=== PATIENT | male | born 1955 | race Caucasian/White ===

== ENCOUNTER → 2017-06-30 | Outpatient (CLI) | payer BC ==
[2017-06-30 11:49] LABS: Blood Urea Nitrogen 11 mg/dL (9-20)
--- NOTE | 2017-06-30 13:24 | CT ---
EXAMINATION TYPE: CT soft tissue neck w con DATE OF EXAM: 06/30/2017 HISTORY: Patient complains of left side sore throat. COMPARISON: 04/30/2015 CT DLP: 747.6 mGycm. Automated Exposure Control for Dose Reduction was Utilized. TECHNIQUE: CT scan of the neck is performed with IV Contrast, patient injected with 100 mL of Isovue 300, axial images are obtained, coronal and sagittal reformatted images are reviewed. FINDINGS: Airway: There is slight asymmetric enlargement of the inferior aspect of the left parapharyngeal tons il comparison to the right although this appears similar to the exam of 04/30/2015 such as on series 3 image 63 measuring 1.2 cm in transverse dimension and on the prior examination on series 3 image 25 measuring 1.5 cm in transverse dimension. There is minimal resultant posterior oropharyngeal airway n arrowing without obstruction. Parotid/submandibular glands: Parotid and submandibular glands are symmetric without calculus or infl ammatory change. Carotid/Vascular Structures: No hemodynamically significant stenosis is present. Vertebral arteries a re diminutive in their intracranial portion but codominant. Osseous Structures: The paranasal sinuses are clear other than scant mucosal thickening within the an terior right lateral sphenoid sinus. Antrostomy defects are incidentally noted. The mastoid air cells are also well aerated. Osseous structures are intact. Frontal sinuses are noted to be hypoplastic. M ild multilevel degenerative changes of the cervical spine are seen. Other: Again there is incidental note of copious mediastinal fat deposition (mediastinal lipomatosis) , a benign process. IMPRESSION: There is asymmetric fullness of the inferior margin of the left parapharyngeal tonsil alt dianna this appears similar to the exam of 2016 and may simply represent hypertrophy. Direct visualiza tion is recommended. No adenopathy within the neck.
== END | disposition home or self-care (01) ==
LOC: RADCTMAIN 11:22
PROVIDERS: ATTEND Otolaryngology
DX: J02.9 Acute pharyngitis, unspecified (principal)
CPT/HCPCS: 82565; 84520; 70491; 36415; Q9967

== ENCOUNTER → 2017-08-31 | Outpatient (CLI) | payer BC ==
[~2017-08-31] MED LIST: REGADENOSON 0.4 MG/5 ML SYRINGE IV ONE
--- NOTE | 2017-08-31 10:31 | P.STRESS ---
- Stress Test Note Stress Test Results/Findings: Exam Performed: NM stress lexiscan cardiolite Exam Date: 08/31/17 Reason for Exam: Physical Height: 5 ft 9 in Weight: 167.829 kg Protocol: Bernice Scan Stage: na Duration of Exercise: na Resting Heart Rate: 74 Resting Blood Pressure: 128/78 Maximum Achieved Heart Rate: 97 Maximum Achieved Blood Pressure: 152/51 85% PMHR: na 100% PMHR: na METS: na Technologist Comment: Stress Test Results/Findings: This is a 61-year-old male with history of hypertension, diabetes, hypercholesterolemia and family history being evaluated for cardiac status. Patient is also a smoker.. Stress data: Baseline EKG showed sinus rhythm with evidence of right bundle- branch block pattern. A standard dose of Lexiscan was infused. EKGs taken during and after infusion did not reveal any significant changes from baseline. Patient did not experience any chest pain. Final impression: #1. Negative Lexiscan stress test .#2. Report on the nuclear images to be given by the radiologist.
--- NOTE | 2017-08-31 13:08 | NM ---
EXAMINATION TYPE: NM stress lexiscan cardiolite DATE OF EXAM: 08/31/2017 COMPARISON: 08/18/2013 HISTORY: Chest pain TECHNIQUE: After the intravenous administration of 10.95 mCi Tc 99m Sestamibi - Cardiolite resting S PECT images acquired 50 minutes post injection. The patient received 0.4mg Lexiscan, 26.6 mCi Tc 99m Sestamibi - Stress images obtained [address] injection FINDINGS: Review of stress and rest SPECT images demonstrates no distinct perfusion abnormality. Gated analysi s shows normal wall motion with an estimated left ventricular ejection fraction of 65 %. IMPRESSION: No scintigraphic evidence for reversible ischemia.
== END ==
LOC: RADNMMAIN 07:42
PROVIDERS: ATTEND Internal Medicine
DX: R94.31 Abnormal electrocardiogram [ECG] [EKG] (principal)
CPT/HCPCS: 93017; 78452; A9500; J2785

== ENCOUNTER → 2017-09-05 | Outpatient (CLI) | payer BC | END | disposition home or self-care (01) | LOC: RADPETMAIN 07:20 | PROVIDERS: ATTEND Otolaryngology | DX: D37.05 Neoplasm of uncertain behavior of pharynx (principal); Z53.9 Procedure and treatment not carried out, unspecified reason ==

== ENCOUNTER → 2017-09-12 | Outpatient (CLI) | payer BC ==
--- NOTE | 2017-09-13 13:23 | PE ---
Nuclear medicine PET/CT history: Pharyngeal neoplasm, initial Correlation CT neck 06/30/2017 Patient received 12.6 mCi F-18 FDG intravenously in delayed scanning was performed from the skull bas e to the mid thighs. An attenuation correction CT scan was performed. Small [id number] images obta ined through the neck. Head and neck: There is no evident adenopathy. Uptake present within the palatine tonsils is mild, so me mild asymmetry of uptake at the ankle joint, palatine tonsil somewhat greater on the right as comp ared to left at the mucosal surface and may be related to salivary secretion. Tonsillar uptake is rel atively symmetric, uptake at the base of the tongue is indeterminate and mild. CHEST: There is no suspicious hypermetabolic uptake. Enlarged lymph nodes present in the retrocaval p retracheal mediastinum is present. Heart is enlarged. There is coronary artery calcification. No evid ent lung nodule. No suspicious hypermetabolic uptake. Abdomen pelvis: No evident retroperitoneal adenopathy. Liver shows low attenuation likely due to hepa tic steatosis, liver is enlarged. Patient is post cholecystectomy. There is a duodenal diverticulum. No suspicious hypermetabolic uptake. Osseous structures are unremarkable. IMPRESSION: Nonspecific pharyngeal uptake questionable clinical significance, no suspicious adenopath y.
== END | disposition home or self-care (01) ==
LOC: RADPETMAIN 11:49
PROVIDERS: ATTEND Otolaryngology
DX: D37.05 Neoplasm of uncertain behavior of pharynx (principal); R07.0 Pain in throat
CPT/HCPCS: 78815; A9552

== ENCOUNTER → 2020-03-26 | Outpatient (CLI) | payer BC | END | disposition home or self-care (01) | LOC: RADMRIMAIN 12:54 | PROVIDERS: ATTEND Orthopaedic Surgery Sports Medicine | DX: Z53.9 Procedure and treatment not carried out, unspecified reason (principal) ==

== ENCOUNTER 2021-02-11 10:13 | Inpatient (IN) | payer BC ==
--- NOTE | 2021-02-11 11:07 | ED ---
General Adult HPI - General Chief complaint: Shortness of Breath Stated complaint: BASIM Time Seen by Provider: 02/11/21 10:41 Source: patient, RN notes reviewed Mode of arrival: ambulatory Limitations: no limitations - History of Present Illness Initial comments: Patient is a pleasant 65-year-old male presenting to the emergency department with difficulty in breathing. Onset of symptoms was 1 week ago. Symptoms have worsened the past couple of days. Symptoms do worsen with exertion. Patient has not noticed orthopnea however does use a CPAP. Patient denies any cough however did cough during exam. No chest pain. No fevers. No leg pain or leg swelling. No history of similar symptoms previously. - Related Data Home Medications Medication Instructions Recorded Confirmed Aspirin EC [Ecotrin Low Dose] 81 mg PO DAILY 06/06/19 02/11/21 Atorvastatin [Lipitor] 40 mg PO DAILY 06/06/19 02/11/21 Bisoprolol-Hctz 2.5-6.25 mg [Ziac 1 tab PO DAILY 06/06/19 02/11/21 2.5-6.25 MG] Canagliflozin [Invokana] 100 mg PO DAILY 06/06/19 02/11/21 Cholecalciferol [Vitamin D3 (25 2,000 unit PO DAILY 06/06/19 02/11/21 Mcg = 1000 Iu)] Fenofibrate [Lofibra] 160 mg PO DAILY 06/06/19 02/11/21 Furosemide [Lasix] 40 mg PO DAILY 06/06/19 02/11/21 Insulin Degludec [Tresiba 54 units SQ DAILY 06/06/19 02/11/21 Flextouch U-200 Pen] Lansoprazole 30 mg PO DAILY 06/06/19 02/11/21 Levothyroxine Sodium [Synthroid] 50 mcg PO DAILY 06/06/19 02/11/21 Ramipril 10 mg PO DAILY 06/06/19 02/11/21 amLODIPine [Norvasc] 10 mg PO DAILY 06/06/19 02/11/21 sitaGLIPtin PHOS/metFORMIN HCL 1 tab PO DAILY 06/06/19 02/11/21 [Janumet 50-1,000 mg Tablet] Insulin Aspart [NovoLOG Flexpen] 15 units SQ AC-TID 02/11/21 02/11/21 Potassium Chloride ER [K-Dur 20] 20 meq PO DAILY 02/11/21 02/11/21 Semaglutide [Rybelsus] 3 mg PO DAILY 02/11/21 02/11/21 icosapent ethyL [Icosapent Ethyl] 2 gm PO BID 02/11/21 02/11/21 Allergies Allergy/AdvReac Type Severity Reaction Status Date / Time No Known Allergies Allergy Verified 02/11/21 12:15 Review of Systems ROS Statement: Those systems with pertinent positive or pertinent negative responses have been documented in the HPI. ROS Other: All systems not noted in ROS Statement are negative. Constitutional: Denies: fever Eyes: Denies: eye pain ENT: Denies: ear pain Respiratory: Reports: as per HPI, dyspnea Cardiovascular: Denies: chest pain Endocrine: Denies: fatigue Gastrointestinal: Denies: abdominal pain Genitourinary: Denies: dysuria Musculoskeletal: Denies: back pain Skin: Denies: rash Neurological: Denies: weakness Past Medical History Past Medical History: Diabetes Mellitus, GERD/Reflux, Hearing Disorder / Deafness, Hyperlipidemia, Hypertension, Sleep Apnea/CPAP/BIPAP, Thyroid Disorder Additional Past Medical History / Comment(s): IDDM type II, [place] with Cpap use, hypothyroid, bilateral tinnitis, [place] bilaterally with L ear worse, low back pain. History of Any Multi-Drug Resistant Organisms: MRSA Date of last positivie culture/infection: back MDRO Source:: 2014 Past Surgical History: Cholecystectomy, Tonsillectomy Additional Past Surgical History / Comment(s): Sinus surgery/benign polypectomy, colonoscopy/benign polypectomy Past Anesthesia/Blood Transfusion Reactions: No Reported Reaction Past Psychological History: No Psychological Hx Reported Smoking Status: Former smoker Past Alcohol Use History: None Reported, Occasional Past Drug Use History: None Reported - Past Family History Father History Unknown: Yes Additional Family Medical History / Comment(s): Pt never met his father. Mother Family Medical History: CVA/TIA General Exam Limitations: no limitations General appearance: alert Head exam: Present: normocephalic Eye exam: Present: normal appearance Neck exam: Present: normal inspection Respiratory exam: Present: normal lung sounds bilaterally, other (Patient did cough with some mild rales with cough only. Patient does have some tachypnea). Absent: decreased breath sounds Cardiovascular Exam: Present: regular rate, normal rhythm GI/Abdominal exam: Present: soft. Absent: tenderness Extremities exam: Present: normal inspection. Absent: pedal edema, calf tenderness Neurological exam: Present: alert Psychiatric exam: Present: normal affect, normal mood Skin exam: Present: normal color Course Vital Signs 02/11/21 02/11/21 10:19 10:57 Temperature 98.5 F Pulse Rate 97 Respiratory 18 28 H Rate Blood Pressure 183/102 O2 Sat by Pulse 92 L Oximetry EKG Findings - EKG Comments: EKG Findings:: Normal sinus rhythm rate 96. AK 174. QRS 144. QT 410. QTc 5 and 7. Left axis. Right bundle branch block. Inferior Q waves. No acute ST change. Medical Decision Making - Medical Decision Making Patient reevaluated and resting sitting up in bed. Patient symptoms somewhat improved with oxygen. Secondary to hypoxia and tachypnea patient will be admitted. Case discussed with Dr. Gary who is in agreement and does request pulmonary consult. - Lab Data Result diagrams: 02/11/21 11:05 02/11/21 11:05 Lab Results 02/11/21 02/11/21 02/11/21 Range/Units 11:05 11:05 11:05 WBC 7.7 (3.8-10.6) k/uL RBC 4.82 (4.30-5.90) m/uL Hgb 15.6 (13.0-17.5) gm/dL Hct 44.4 (39.0-53.0) % MCV 92.2 (80.0-100.0) fL MCH 32.4 (25.0-35.0) pg MCHC 35.2 (31.0-37.0) g/dL RDW 12.9 (11.5-15.5) % Plt Count 172 (150-450) k/uL MPV 8.4 Neutrophils % 85 % Lymphocytes % 9 % Monocytes % 4 % Eosinophils % 0 % Basophils % 0 % Neutrophils # 6.6 (1.3-7.7) k/uL Lymphocytes # 0.7 L (1.0-4.8) k/uL Monocytes # 0.3 (0-1.0) k/uL Eosinophils # 0.0 (0-0.7) k/uL Basophils # 0.0 (0-0.2) k/uL PT 10.1 (9.0-12.0) sec INR 0.9 (<1.2) APTT 23.6 (22.0-30.0) sec D-Dimer 0.44 (<0.60) mg/L FEU Sodium 130 L (137-145) mmol/L Potassium 4.5 (3.5-5.1) mmol/L Chloride 94 L (98-107) mmol/L Carbon Dioxide 18 L (22-30) mmol/L Anion Gap 18 mmol/L BUN 13 (9-20) mg/dL Creatinine 0.72 (0.66-1.25) mg/dL Est GFR (CKD-EPI)AfAm >90 (>60 ml/min/1.73 sqM) Est GFR (CKD-EPI)NonAf >90 (>60 ml/min/1.73 sqM) Glucose 276 H (74-99) mg/dL Plasma Lactic Acid Ned (0.7-2.0) mmol/L Calcium 9.0 (8.4-10.2) mg/dL Total Bilirubin 0.6 (0.2-1.3) mg/dL AST 26 (17-59) U/L ALT 25 (4-49) U/L Alkaline Phosphatase 58 (38-126) U/L Troponin I (0.000-0.034) ng/mL NT-Pro-B Natriuret Pep pg/mL Total Protein 7.0 (6.3-8.2) g/dL Albumin 3.9 (3.5-5.0) g/dL Coronavirus (PCR) (Not Detectd) 02/11/21 02/11/21 02/11/21 Range/Units 11:05 11:05 11:05 WBC (3.8-10.6) k/uL RBC (4.30-5.90) m/uL Hgb (13.0-17.5) gm/dL Hct (39.0-53.0) % MCV (80.0-100.0) fL MCH (25.0-35.0) pg MCHC (31.0-37.0) g/dL RDW (11.5-15.5) % Plt Count (150-450) k/uL MPV Neutrophils % % Lymphocytes % % Monocytes % % Eosinophils % % Basophils % % Neutrophils # (1.3-7.7) k/uL Lymphocytes # (1.0-4.8) k/uL Monocytes # (0-1.0) k/uL Eosinophils # (0-0.7) k/uL Basophils # (0-0.2) k/uL PT (9.0-12.0) sec INR (<1.2) APTT (22.0-30.0) sec D-Dimer (<0.60) mg/L FEU Sodium (137-145) mmol/L Potassium (3.5-5.1) mmol/L Chloride (98-107) mmol/L Carbon Dioxide (22-30) mmol/L Anion Gap mmol/L BUN (9-20) mg/dL Creatinine (0.66-1.25) mg/dL Est GFR (CKD-EPI)AfAm (>60 ml/min/1.73 sqM) Est GFR (CKD-EPI)NonAf (>60 ml/min/1.73 sqM) Glucose (74-99) mg/dL Plasma Lactic Acid Ned 1.1 (0.7-2.0) mmol/L Calcium (8.4-10.2) mg/dL Total Bilirubin (0.2-1.3) mg/dL AST (17-59) U/L ALT (4-49) U/L Alkaline Phosphatase (38-126) U/L Troponin I <0.012 (0.000-0.034) ng/mL NT-Pro-B Natriuret Pep 112 pg/mL Total Protein (6.3-8.2) g/dL Albumin (3.5-5.0) g/dL Coronavirus (PCR) (Not Detectd) 02/11/21 Range/Units 11:05 WBC (3.8-10.6) k/uL RBC (4.30-5.90) m/uL Hgb (13.0-17.5) gm/dL Hct (39.0-53.0) % MCV (80.0-100.0) fL MCH (25.0-35.0) pg MCHC (31.0-37.0) g/dL RDW (11.5-15.5) % Plt Count (150-450) k/uL MPV Neutrophils % % Lymphocytes % % Monocytes % % Eosinophils % % Basophils % % Neutrophils # (1.3-7.7) k/uL Lymphocytes # (1.0-4.8) k/uL Monocytes # (0-1.0) k/uL Eosinophils # (0-0.7) k/uL Basophils # (0-0.2) k/uL PT (9.0-12.0) sec INR (<1.2) APTT (22.0-30.0) sec D-Dimer (<0.60) mg/L FEU Sodium (137-145) mmol/L Potassium (3.5-5.1) mmol/L Chloride (98-107) mmol/L Carbon Dioxide (22-30) mmol/L Anion Gap mmol/L BUN (9-20) mg/dL Creatinine (0.66-1.25) mg/dL Est GFR (CKD-EPI)AfAm (>60 ml/min/1.73 sqM) Est GFR (CKD-EPI)NonAf (>60 ml/min/1.73 sqM) Glucose (74-99) mg/dL Plasma Lactic Acid Ned (0.7-2.0) mmol/L Calcium (8.4-10.2) mg/dL Total Bilirubin (0.2-1.3) mg/dL AST (17-59) U/L ALT (4-49) U/L Alkaline Phosphatase (38-126) U/L Troponin I (0.000-0.034) ng/mL NT-Pro-B Natriuret Pep pg/mL Total Protein (6.3-8.2) g/dL Albumin (3.5-5.0) g/dL Coronavirus (PCR) Detected A (Not Detectd) - Radiology Data Radiology results: image reviewed (Chest x-ray shows diffuse fluffy infiltrates) Disposition Clinical Impression: COVID-19 Disposition: ADMITTED IP TO THIS [facility] Condition: Serious Is patient prescribed a controlled substance at d/c from ED?: No Referrals: Kenneth Gary MD [Primary Care Provider] - 1-2 days Decision Time: 12:21
[2021-02-11 11:25] LABS: Basophils % (A) 0 %; Eosinophils % (A) 0 %; HCT 44.4 % (39.0-53.0); HGB 15.6 gm/dL (13.0-17.5); Lymphocytes # (A) 0.7 k/uL (1.0-4.8); Lymphocytes % (A) 9 %; MCH 32.4 pg (25.0-35.0); MCHC 35.2 g/dL (31.0-37.0); MCV 92.2 fL (80.0-100.0); Mean Platelet Volume 8.4; Monocytes # (A) 0.3 k/uL (0-1.0); Monocytes % (A) 4 %; Neutrophils # (A) 6.6 k/uL (1.3-7.7); Neutrophils % (A) 85 %; Platelet Count 172 k/uL (150-450); RBC 4.82 m/uL (4.30-5.90); RDW 12.9 % (11.5-15.5); WBC 7.7 k/uL (3.8-10.6)
--- NOTE | 2021-02-11 11:40 | XR ---
EXAMINATION TYPE: XR chest 2V DATE OF EXAM: 02/11/2021 COMPARISON: NONE HISTORY: Shortness of breath TECHNIQUE: Frontal and lateral views of the chest are obtained. FINDINGS: Scattered senescent parenchymal changes noted. Hyperinflation compatible with COPD. Patchy perihilar infiltrates noted compatible with underlying pneumonia. Heart size is stable. Mediastinal structures are stable and grossly unremarkable. No evidence for hilar prominence. Degenerative changes dorsal spine. IMPRESSION: 1. Patchy perihilar infiltrates noted compatible with underlying pneumonia.
[2021-02-11 11:46] LABS: ALT 25 U/L (4-49); AST 26 U/L (17-59); African American GFR (CKD) >90 (>60 ml/min/1.73 sqM); Albumin 3.9 g/dL (3.5-5.0); Alkaline Phosphatase 58 U/L (38-126); Anion Gap 18 mmol/L; Blood Urea Nitrogen 13 mg/dL (9-20); Carbon Dioxide 18 mmol/L (22-30); Chloride 94 mmol/L (98-107); Glucose 276 mg/dL (74-99); Non-African American GFR(CKD) >90 (>60 ml/min/1.73 sqM); Potassium 4.5 mmol/L (3.5-5.1); Sodium 130 mmol/L (137-145); Total Bilirubin 0.6 mg/dL (0.2-1.3)
[2021-02-11 11:48] LABS: INR 0.9 (<1.2); Partial Thromboplastin Time 23.6 sec (22.0-30.0); Prothrombin Time 10.1 sec (9.0-12.0)
[2021-02-11] MEDS ORDERED: ACETAMINOPHEN TAB 325 MG TAB PO PRN (12:22)
[2021-02-11] MEDS ORDERED: NALOXONE 0.4 MG/ML 1 ML VIAL IV PRN (12:22)
[2021-02-11 12:59] LABS: Glucose,Whole Blood 257 mg/dL (75-99)
[2021-02-11] MEDS: ZINC SULFATE 220 MG CAP PO SCH (13:08)
[2021-02-11] MEDS: DEXAMETHASONE SOD PHOSPHATE 10 MG/ML 1 ML VIAL IVP SCH (13:08)
[2021-02-11] MEDS: CHOLECALCIFEROL 25 MCG (1000 IU) TABLET PO SCH (13:08)
[2021-02-11] MEDS: SODIUM CHLORIDE 0.9% 1,000 ML IV SCH (13:09)
[2021-02-11] MEDS ORDERED: INSULIN ASPART (NovoLOG) 100 UNIT/ML VIAL SQ ONE ×2 (13:13→18:13)
[2021-02-11] MEDS ORDERED: REMDESIVIR 200 MG in SODIUM CHLORIDE 0.9% 250 ML IVPB ONE (15:16)
--- NOTE | 2021-02-11 15:19 | P.CNPUL ---
History of Present Illness Consult date: 02/11/21 Reason for consult: dyspnea, pneumonia History of present illness: 65-year-old male patient presented with shortness of breath and his symptoms o nset was approximately a week ago and the patient was diagnosed having COVID 19 related pneumonia. The patient's presented to the hospital and the patient's was found to be afebrile, hypertensive initially with a pulse ox of 92% on room air oxygen. The blood work showed a d-dimer of 0.44, sodium level of 1:30, serum bicarb of 18 with anion gap of 18 with a creatinine of 0.7, normal LFTs, troponin was negative and the proBNP level was 112. COVID 19 was positive. Chest x-ray showed bilateral pulmonary infiltrates, peripheral distribution mainly in the mid and lower lung dinh bilaterally. At this point in time, the patient is on oxygen and he is on 3 L to bring his saturation at 96%. His comorbid conditions include hypertension, diabetes, hyperlipidemia, impaired hearing, obstructive sleep apnea and the patient is obese with a BMI of 45.6. He also has history of hypothyroidism. He is a former smoker. Review of Systems Constitutional: Reports fatigue, Reports weakness Eyes: denies as per HPI, denies blurred vision, denies bulging eye, denies decreased vision, denies diplopia, denies discharge, denies dry eye, denies irritation, denies itching, denies pain, denies photophobia, denies loss of peripheral vision, denies loss of vision, denies tunnel vision/blind spots Ears: deny: decreased hearing, ear discharge, earache, tinnitus Ears, nose, mouth and throat: Reports as per HPI Breasts: absent: as per HPI, gynecomastia Cardiovascular: Reports decreased exercise tolerance, Reports dyspnea on exertion Respiratory: Reports cough, Reports dyspnea Gastrointestinal: Reports as per HPI Genitourinary: Reports as per HPI Musculoskeletal: Reports as per HPI Musculoskeletal: absent: ankle pain, ankle stiffness, ankle swelling, as per HPI, elbow pain, elbow stiffness, elbow swelling, foot pain, foot stiffness, foot swelling, hand pain, hand stiffness, hand swelling, hip pain, hip stiffn ess, hip swelling, knee pain, knee stiffness, knee swelling, shoulder pain, shoulder stiffness, shoulder swelling, wrist pain, wrist stiffness, wrist swelling Integumentary: Reports as per HPI Neurological: Reports as per HPI Psychiatric: Reports as per HPI Endocrine: Reports as per HPI, Reports fatigue Hematologic/Lymphatic: Reports as per HPI Allergic/Immunologic: Reports as per HPI Past Medical History Past Medical History: Diabetes Mellitus, GERD/Reflux, Hearing Disorder / Deafness, Hyperlipidemia, Hypertension, Sleep Apnea/CPAP/BIPAP, Thyroid Disorder Additional Past Medical History / Comment(s): IDDM type II, YARITZA with Cpap use, hypothyroid, bilateral tinnitis, [place] bilaterally with L ear worse, low back pain. History of Any Multi-Drug Resistant Organisms: MRSA Date of last positivie culture/infection: back MDRO Source:: 2014 Past Surgical History: Cholecystectomy, Tonsillectomy Additional Past Surgical History / Comment(s): Sinus surgery/benign polypectomy, colonoscopy/benign polypectomy Past Anesthesia/Blood Transfusion Reactions: No Reported Reaction Past Psychological History: No Psychological Hx Reported Smoking Status: Former smoker Past Alcohol Use History: None Reported, Occasional Past Drug Use History: None Reported - Past Family History Father History Unknown: Yes Additional Family Medical History / Comment(s): Pt never met his father. Mother Family Medical History: CVA/TIA Medications and Allergies Home Medications Medication Instructions Recorded Confirmed Type Aspirin EC [Ecotrin Low Dose] 81 mg PO DAILY 06/06/19 02/11/21 History Atorvastatin [Lipitor] 40 mg PO DAILY 06/06/19 02/11/21 History Bisoprolol-Hctz 2.5-6.25 mg [Ziac 1 tab PO DAILY 06/06/19 02/11/21 History 2.5-6.25 MG] Canagliflozin [Invokana] 100 mg PO DAILY 06/06/19 02/11/21 History Cholecalciferol [Vitamin D3 (25 2,000 unit PO DAILY 06/06/19 02/11/21 History Mcg = 1000 Iu)] Fenofibrate [Lofibra] 160 mg PO DAILY 06/06/19 02/11/21 History Furosemide [Lasix] 40 mg PO DAILY 06/06/19 02/11/21 History Insulin Degludec [Tresiba 54 units SQ DAILY 06/06/19 02/11/21 History Flextouch U-200 Pen] Lansoprazole 30 mg PO DAILY 06/06/19 02/11/21 History Levothyroxine Sodium [Synthroid] 50 mcg PO DAILY 06/06/19 02/11/21 History Ramipril 10 mg PO DAILY 06/06/19 02/11/21 History amLODIPine [Norvasc] 10 mg PO DAILY 06/06/19 02/11/21 History sitaGLIPtin PHOS/metFORMIN HCL 1 tab PO DAILY 06/06/19 02/11/21 History [Janumet 50-1,000 mg Tablet] Insulin Aspart [NovoLOG Flexpen] 15 units SQ AC-TID 02/11/21 02/11/21 History Semaglutide [Rybelsus] 3 mg PO DAILY 02/11/21 02/11/21 History icosapent ethyL [Icosapent Ethyl] 2 gm PO BID 02/11/21 02/11/21 History Allergies Allergy/AdvReac Type Severity Reaction Status Date / Time No Known Allergies Allergy Verified 02/11/21 12:15 Physical Exam Vitals: Vital Signs Temp Pulse Resp BP Pulse Ox 02/11/21 13:24 88 18 172/73 96 02/11/21 12:15 95 18 186/94 93 L 02/11/21 10:57 28 H 02/11/21 10:19 98.5 F 97 18 183/102 92 L Intake and Output 02/11/21 02/11/21 02/11/21 06:59 14:59 22:59 Other: Weight 136.078 kg Results - Laboratory Findings CBC and BMP: 02/11/21 11:05 02/11/21 11:05 PT/INR, D-dimer PT 10.1 sec (9.0-12.0) 02/11/21 11:05 INR 0.9 (<1.2) 02/11/21 11:05 D-Dimer 0.44 mg/L FEU (<0.60) 02/11/21 11:05 Abnormal lab findings: Abnormal Labs 02/11/21 02/11/21 02/11/21 11:05 11:05 11:05 Lymphocytes # 0.7 L Sodium 130 L Chloride 94 L Carbon Dioxide 18 L Glucose 276 H POC Glucose (mg/dL) Coronavirus (PCR) Detected A 02/11/21 12:57 Lymphocytes # Sodium Chloride Carbon Dioxide Glucose POC Glucose (mg/dL) 257 H Coronavirus (PCR) Assessment and Plan Plan: 1 acute bilateral COVID 19 related pneumonia. Symptoms started approximately a week ago. The patient is a vaccinated individual and he received 2 doses of messenger RNA back in May 2020. Currently is presenting with typical COVID 19 symptoms and he was confirmed to have COVID 19 infection. 2 acute hypoxic respiratory failure secondary to above and the patient is currently on 3 L of oxygen by nasal cannula 3 morbid obesity with a BMI of 45.6 4 obstructive sleep apnea maintained on CPAP therapy at pressure of 15 cm of water and the patient is carrying his CPAP unit with him 5 hypothyroidism 6 diabetes mellitus type 2 7 chronic back pain 8 acid reflux 9 impaired hearing Plan Keep oxygen at 3 L per minute nasal cannula *The patient Decadron 6 mg IV every 24 hours Start the patient on Remdesivir protocol as the patient states our guidelines Monitor inflammatory markers Put the patient on Lovenox 40 subcu every 24 hours, DVT prophylaxis Resume all medications and the patient will be also placed on sliding scale insulin for blood sugar control Multivitamins failure thought COVID 19 infections Continue utilizing CPAP overnight at a pressure 15 cm of water and the patient has his own machine We'll continue to follow
[2021-02-11] MEDS: ENOXAPARIN 40 MG/0.4 ML SYRINGE SQ SCH (16:17)
[2021-02-11 17:12] LABS: Glucose,Whole Blood 313 mg/dL (75-99)
[2021-02-11] MEDS ORDERED: INSULIN ASPART (NovoLOG) 100 UNIT/ML VIAL SQ SCH (18:15)
[2021-02-11] MEDS ORDERED: ALPRAZolam 0.5 MG TAB PO STA (18:39)
[2021-02-11] MEDS ORDERED: ALPRAZolam 0.25 MG TAB PO PRN (18:39)
[2021-02-11] MEDS ORDERED: NON FORMULARY DRUG (Icosapent Ethyl [Icosapent Ethyl] 1 GM Capsule) PO SCH (21:00)
[2021-02-11] MEDS: INSULIN DETEMIR (LEVEMIR) 100 UNIT/ML SYR SQ SCH (21:29)
[2021-02-11] MEDS: ASCORBIC ACID 500 MG TAB PO SCH (21:29)
[2021-02-12] MEDS: SODIUM CHLORIDE 0.9% 1,000 ML IV SCH ×2 (02:46→18:29)
--- NOTE | 2021-02-12 05:07 | P.HPIM ---
History of Present Illness H&P Date: 02/11/21 Chief Complaint: COVID-19 pneumonia. HISTORY OF PRESENT ILLNESS: This is a 65-year-old male one of my patient with a previous medical history significant for hypertension and hypertensive cardio vascular disease, hyperlipidemia, hypothyroidism, history of diabetes mellitus type 2 uncontrolled with hyperglycemia elevated hemoglobin A1c, super morbid obesity with obstructive sleep apnea bilateral tinnitus, patient presented to the emergency department at [facility] yesterday with increased shortness breath for the past 4-5 days, patient stated that he was at the [facility] [place] and he was was his manuel but he was exposed to few people over the last week or so not sure of any sick contact, developed to have a significant shortness breath associated with increased coughing of phlegm production, no fever or chills no sore throat, patient presented to the ER he was found to have: Positive PCR, he was admitted to the hospital for evaluation and treatment he was started on Remdesevir 200 mg IV piggyback 1 followed by 100 mg once every day for the next 5 days, patient also was started on Lovenox 40 mg subcutaneously every 24 hours as well as dexamethasone 6 mg IV push every 24 hours, he was also supplied with vitamin C vitamin D and zinc sulfate and he was admitted to the hospital pulmonary consultation appreciated. REVIEW OF SYSTEMS: Constitutional: No documented fever, no chills, positive for night sweats. No weight change. Positive for weakness, fatigue no lethargy. No daytime sleepiness. HEENT: No headache. No blurred vision or double vision, no loss of vision. No loss of Hearing, no ringing in the ears, no dizziness. No nasal drainage or congestion. No epistaxis. No sore throat. Lungs: Positive for shortness of breath, occasional cough, minimal sputum production. No wheezing. Reports dyspnea with activity. Cardiovascular: No chest pain, positive for lower extremity edema. Positive for palpitations. No paroxysmal nocturnal dyspnea. No orthopnea. No lightheadedness or dizziness. No syncopal episodes. Abdominal: Reports abdominal pain. No nausea, vomiting. No diarrhea. No constipation. No bloody or tarry stools reports loss of appetite. Genitourinary: No dysuria, increased frequency, urgency. No urinary retention. Musculoskeletal: No myalgias. No muscle weakness, no gait dysfunction, no frequent falls. No back pain. No neck pain. Integumentary: No wounds, no lesions. No rash or pruritus. No unusual bruising. No change in hair or nails. Neurologic: No aphasia. No facial droop. No change in mentation. No head injury. No headache. No paralysis. No paresthesia. Psychiatric: No depression, positive for anxiety and panic attack. Endocrine: No abnormal blood sugars. No weight change. PAST MEDICAL HISTORY: Hypertension and hypertensive cardiovascular disease. Hyperlipidemia. Diabetes mellitus type 2. Diabetic polyneuropathy. Hypothyroidism. Obesity with obstructive sleep apnea. Tinnitus. MRSA carrier. PAST SURGICAL HISTORY: tonsillectomy and adenoidectomy Sinus surgery Cholecystectomy I and D of left groin abscess Colonoscopy with polypectomy SOCIAL HISTORY: She smoked a pack every day smoked for many years and quit about 5 years ago, he denies any alcohol ingestion, no drug use or abuse. FAMILY HISTORY: Patient never met his father who is , mother at age 75 from stroke patient has one brother and 2 sisters one from ovarian cancer that one is healthy patient has one son and one daughter no major medical problems. PHYSICAL EXAMINATION: General: 65-year-old male sitting up in bed in moderate respiratory distress. HEENT: Head is atraumatic, normocephalic, pupils were equal round reactive to light and recommendation, extraocular muscle movement were intact, sclera nonicteric, conjunctivae were pale, mucous membranes of the mouth are somewhat dry. Neck: Supple, no JVP, normal carotid upstroke bilaterally, no lymphadenopathy. Chest: Decreased breath sounds at the bases, few rhonchi, no expiratory wheezes, no chest wall tenderness, no intercostal retractions. Heart: First heart sound is normal, second heart sounds normal systolic ejection murmur 2/6 located in the left sternal border Abdomen: Soft, nontender, nondistended, positive bowel sounds. Extremities: There is +2 edema no calf tenderness DP +2 bilaterally. Neurologic examination: Patient is awake alert and oriented X3, cranial nerves II-12 appear grossly intact, muscle power were 5 out of 5 in upper extremities and 5 out of 5 in bilateral lower extremities, deep tendon reflexes normal bilaterally. ASSESSMENT AND PLAN: 1. COVID-19 pneumonia. Continue oxygen support, continue Remdesivir 100 mg IV piggyback daily for 1/5 days, continue dexamethasone 6 mg IV push daily, continue 6 sulfate vitamin D and vitamin C, continue droplet isolation with eye protection, monitor the patient very closely, continue with albuterol HFA 2 puffs inhalation 4 hours, continue with Symbicort 160/4.5 g 2 puffs inhalation twice every day. 2. Diabetes mellitus type 2 with a steroid-induced hyperglycemia. Continue patient on Tresiba 52 units once every day along with the Humalog 15 units before each meal 3 times every day, patient will resume his Rybelsus 7 mg orally once every day as well as Farxiga 10 mg orally once every day, monitor the patient blood glucose very closely, continue patient on Janumet as well. 3. Hypertension and hypertensive cardiovascular disease. Continue amlodipine 10 mg daily, continue Ziac 2.5/6.25 mg every day, continue with lisinopril 40 mg orally once every day monitor blood pressure closely. 4. Hyperlipidemia. Continue Lipitor 40 mg orally once every day. 5. Hypothyroidism. Continue patient on Synthroid 50 g orally once every day. 6. Obesity with obstructive sleep apnea. Continue with weight loss, patient may not use a CPAP right now. 7. MRSA carrier. 8. DVT prophylaxis. Lovenox 40 mg subcutaneously every 24 hours. 9. GI prophylaxis. Protonix 40 mg orally once every day. 10. Admitted to inpatient. Estimate a length of stay 2 midnights 11. Patient's full code. Past Medical History Past Medical History: Diabetes Mellitus, GERD/Reflux, Hearing Disorder / Deafn ess, Hyperlipidemia, Hypertension, Sleep Apnea/CPAP/BIPAP, Thyroid Disorder Additional Past Medical History / Comment(s): IDDM type II, YARITZA with Cpap use, hypothyroid, bilateral tinnitis, [place] bilaterally with L ear worse, low back pain. History of Any Multi-Drug Resistant Organisms: MRSA Date of last positivie culture/infection: back MDRO Source:: 2014 Past Surgical History: Cholecystectomy, Tonsillectomy Additional Past Surgical History / Comment(s): Sinus surgery/benign polypectomy, colonoscopy/benign polypectomy Past Anesthesia/Blood Transfusion Reactions: No Reported Reaction Past Psychological History: No Psychological Hx Reported Smoking Status: Former smoker Past Alcohol Use History: None Reported, Occasional Past Drug Use History: None Reported - Past Family History Father History Unknown: Yes Additional Family Medical History / Comment(s): Pt never met his father. Mother Family Medical History: CVA/TIA Medications and Allergies Home Medications Medication Instructions Recorded Confirmed Type Aspirin EC [Ecotrin Low Dose] 81 mg PO DAILY 06/06/19 02/11/21 History Atorvastatin [Lipitor] 40 mg PO DAILY 06/06/19 02/11/21 History Bisoprolol-Hctz 2.5-6.25 mg [Ziac 1 tab PO DAILY 06/06/19 02/11/21 History 2.5-6.25 MG] Canagliflozin [Invokana] 100 mg PO DAILY 06/06/19 02/11/21 History Cholecalciferol [Vitamin D3 (25 2,000 unit PO DAILY 06/06/19 02/11/21 History Mcg = 1000 Iu)] Fenofibrate [Lofibra] 160 mg PO DAILY 06/06/19 02/11/21 History Furosemide [Lasix] 40 mg PO DAILY 06/06/19 02/11/21 History Insulin Degludec [Tresiba 54 units SQ DAILY 06/06/19 02/11/21 History Flextouch U-200 Pen] Lansoprazole 30 mg PO DAILY 06/06/19 02/11/21 History Levothyroxine Sodium [Synthroid] 50 mcg PO DAILY 06/06/19 02/11/21 History Ramipril 10 mg PO DAILY 06/06/19 02/11/21 History amLODIPine [Norvasc] 10 mg PO DAILY 06/06/19 02/11/21 History sitaGLIPtin PHOS/metFORMIN HCL 1 tab PO DAILY 06/06/19 02/11/21 History [Janumet 50-1,000 mg Tablet] Insulin Aspart [NovoLOG Flexpen] 15 units SQ AC-TID 02/11/21 02/11/21 History Semaglutide [Rybelsus] 3 mg PO DAILY 02/11/21 02/11/21 History icosapent ethyL [Icosapent Ethyl] 2 gm PO BID 02/11/21 02/11/21 History Allergies Allergy/AdvReac Type Severity Reaction Status Date / Time No Known Allergies Allergy Verified 02/11/21 12:15 Physical Exam Vitals: Vital Signs Temp Pulse Resp BP Pulse Ox 02/11/21 17:05 84 20 153/98 96 02/11/21 16:10 86 20 177/99 96 02/11/21 13:24 88 18 172/73 96 02/11/21 12:15 95 18 186/94 93 L 02/11/21 10:57 28 H 02/11/21 10:19 98.5 F 97 18 183/102 92 L Intake and Output 02/11/21 02/11/21 02/11/21 06:59 14:59 22:59 Other: Weight 136.078 kg Results CBC & Chem 7: 02/11/21 11:05 02/11/21 11:05 Labs: Abnormal Lab Results - Last 24 Hours (Table) 02/11/21 02/11/21 02/11/21 Range/Units 11:05 11:05 11:05 Lymphocytes # 0.7 L (1.0-4.8) k/uL Sodium 130 L (137-145) mmol/L Chloride 94 L (98-107) mmol/L Carbon Dioxide 18 L (22-30) mmol/L Glucose 276 H (74-99) mg/dL POC Glucose (mg/dL) (75-99) mg/dL Coronavirus (PCR) Detected A (Not Detectd) 02/11/21 02/11/21 Range/Units 12:57 17:11 Lymphocytes # (1.0-4.8) k/uL Sodium (137-145) mmol/L Chloride (98-107) mmol/L Carbon Dioxide (22-30) mmol/L Glucose (74-99) mg/dL POC Glucose (mg/dL) 257 H 313 H (75-99) mg/dL Coronavirus (PCR) (Not Detectd)
[2021-02-12 07:36] LABS: Glucose,Whole Blood 306 mg/dL (75-99)
[2021-02-12] MEDS: INSULIN ASPART (NovoLOG) 100 UNIT/ML VIAL SQ SCH ×5 (07:40→21:37)
[2021-02-12] MEDS: ENOXAPARIN 40 MG/0.4 ML SYRINGE SQ SCH (08:38)
[2021-02-12] MEDS: PANTOPRAZOLE 40 MG TABLET PO SCH (08:38)
[2021-02-12] MEDS: ASCORBIC ACID 500 MG TAB PO SCH ×2 (08:38→21:37)
[2021-02-12] MEDS: FENOFIBRATE 160 MG TAB PO SCH (08:38)
[2021-02-12] MEDS: LEVOTHYROXINE 50 MCG TAB PO SCH (08:39)
[2021-02-12] MEDS: ASPIRIN 81 MG PO SCH (08:39)
[2021-02-12] MEDS: ATORVASTATIN 40 MG TAB PO SCH (08:39)
[2021-02-12] MEDS: metFORMIN 500 MG TAB PO SCH (08:39)
[2021-02-12] MEDS: amLODIPine 10 MG TAB PO SCH (08:39)
[2021-02-12] MEDS: lisinopriL 20 MG TAB PO SCH (08:39)
[2021-02-12] MEDS: CHOLECALCIFEROL 25 MCG (1000 IU) TABLET PO SCH (08:39)
[2021-02-12] MEDS: LINAGLIPTIN 5 MG TABLET PO SCH (08:39)
[2021-02-12] MEDS: DEXAMETHASONE SOD PHOSPHATE 10 MG/ML 1 ML VIAL IVP SCH (08:40)
[2021-02-12] MEDS: ICOSAPENT ETHYL 1 GM PO SCH ×2 (08:40→21:38)
[2021-02-12] MEDS: BISOPROLOL-HCTZ 2.5-6.25 MG 1 EACH TAB PO SCH (08:40)
[2021-02-12] MEDS: NON FORMULARY DRUG (Semaglutide [Rybelsus] 3 MG Tablet) PO SCH (08:41)
[2021-02-12] MEDS: ZINC SULFATE 220 MG CAP PO SCH (08:45)
[2021-02-12] MEDS ORDERED: NON FORMULARY DRUG (Cholecalciferol 1,000 UNIT Tab) PO SCH (09:00)
[2021-02-12] MEDS ORDERED: FUROSEMIDE 40 MG TAB PO SCH (09:00)
[2021-02-12] MEDS ORDERED: NON FORMULARY DRUG (Canagliflozin [Invokana] 100 MG Tablet) PO SCH (09:00)
[2021-02-12] MEDS: REMDESIVIR 100 MG in SODIUM CHLORIDE 0.9% 250 ML IVPB SCH (10:19)
[2021-02-12] MEDS: INSULIN DETEMIR (LEVEMIR) 100 UNIT/ML SYR SQ SCH (10:19)
[2021-02-12 12:37] LABS: Glucose,Whole Blood 335 mg/dL (75-99)
--- NOTE | 2021-02-12 16:09 | P.PN ---
Subjective Progress Note Date: 02/12/21 65-year-old male patient presented with shortness of breath and his symptoms onset was approximately a week ago and the patient was diagnosed having COVID 19 related pneumonia. The patient's presented to the hospital and the patient's was found to be afebrile, hypertensive initially with a pulse ox of 92% on room air oxygen. The blood work showed a d-dimer of 0.44, sodium level of 1:30, serum bicarb of 18 with anion gap of 18 with a creatinine of 0.7, normal LFTs, troponin was negative and the proBNP level was 112. COVID 19 was positive. Chest x-ray showed bilateral pulmonary infiltrates, peripheral distribution mainly in the mid and lower lung dinh bilaterally. At this point in time, the patient is on oxygen and he is on 3 L to bring his saturation at 96%. His comorbid conditions include hypertension, diabetes, hyperlipidemia, impaired hearing, obstructive sleep apnea and the patient is obese with a BMI of 45.6. He also has history of hypothyroidism. He is a former smoker. 02/12/2021, the patient remains in the emergency department. He is stable on 4 L approximately nasal cannula. He is receiving his second dose of Remdesivir and the patient is also on Decadron. His oxygen requirements up to 4 L for now and the pulse ox is in order of 96%. He has developed some steroid-induced hyperglycemia. Hemodynamically stable. No other significant events overnight. His LDH level was not measured and were still awaiting for the results. His d- dimer is at 0.44.. He is tolerating his diet. He is resting comfortably. He denies having any specific complaints for now. Objective - Vital Signs Vital signs: Vital Signs Temp 97.8 F 02/12/21 06:57 Pulse 71 02/12/21 14:16 Resp 18 02/12/21 14:16 BP 112/74 02/12/21 14:16 Pulse Ox 96 02/12/21 14:16 Intake & Output 02/11/21 02/12/21 02/12/21 18:59 06:59 18:59 Weight 136.078 kg 136.078 kg - Exam General: 65-year-old male sitting up in bed in moderate respiratory distress. HEENT: Head is atraumatic, normocephalic, pupils were equal round reactive to light and recommendation, extraocular muscle movement were intact, sclera nonicteric, conjunctivae were pale, mucous membranes of the mouth are somewhat dry. Neck: Supple, no JVP, normal carotid upstroke bilaterally, no lymphadenopathy. Chest: Decreased breath sounds at the bases, few rhonchi, no expiratory wheezes, no chest wall tenderness, no intercostal retractions. Heart: First heart sound is normal, second heart sounds normal systolic ejection murmur 2/6 located in the left sternal border Abdomen: Soft, nontender, nondistended, positive bowel sounds. Extremities: There is +2 edema no calf tenderness DP +2 bilaterally. Neurologic examination: Patient is awake alert and oriented X3, cranial nerves II-12 appear grossly intact, muscle power were 5 out of 5 in upper extremities and 5 out of 5 in bilateral lower extremities, deep tendon reflexes normal bilaterally. - Labs CBC & Chem 7: 02/11/21 11:05 02/11/21 11:05 Labs: Abnormal Lab Results - Last 24 Hours (Table) 02/11/21 02/12/21 02/12/21 Range/Units 17:11 07:35 12:35 POC Glucose (mg/dL) 313 H 306 H 335 H (75-99) mg/dL Assessment and Plan Plan: 1 acute bilateral COVID 19 related pneumonia. Symptoms started approximately a week ago. The patient is a vaccinated individual and he received 2 doses of messenger RNA back in May 2020. Currently is presenting with typical COVID 19 symptoms and he was confirmed to have COVID 19 infection. The patient is clinically stable on 4 L about 2 by nasal cannula 2 acute hypoxic respiratory failure secondary to above and the patient is currently on 4L of oxygen by nasal cannula 3 morbid obesity with a BMI of 45.6 4 obstructive sleep apnea maintained on CPAP therapy at pressure of 15 cm of water and the patient is carrying his CPAP unit with him 5 hypothyroidism 6 diabetes mellitus type 2 7 chronic back pain 8 acid reflux 9 impaired hearing Plan Keep oxygen at 4 L per minute nasal cannula The patient Decadron 6 mg IV every 24 hours Remdesivir protocol as the patient states our guidelines, the patient is on day #2 of treatment Monitor inflammatory markers, I'm going to order the LDH and the CRP Put the patient on Lovenox 40 subcu every 24 hours, DVT prophylaxis Resume all medications and the patient will be also placed on sliding scale insulin for blood sugar control, blood sugar management is the primary care team appropriate adjustments of been done Multivitamins failure thought COVID 19 infections Continue utilizing CPAP overnight at a pressure 15 cm of water and the patient has his own machine We'll continue to follow
[2021-02-12 16:59] LABS: Glucose,Whole Blood 418 mg/dL (75-99)
[2021-02-12 20:36] LABS: Glucose,Whole Blood 364 mg/dL (75-99)
[2021-02-13 07:04] LABS: Glucose,Whole Blood 275 mg/dL (75-99)
[2021-02-13] MEDS: SODIUM CHLORIDE 0.9% 1,000 ML IV SCH (07:36)
[2021-02-13] MEDS: metFORMIN 500 MG TAB PO SCH (08:13)
[2021-02-13] MEDS: LINAGLIPTIN 5 MG TABLET PO SCH (08:14)
[2021-02-13] MEDS: amLODIPine 10 MG TAB PO SCH (08:14)
[2021-02-13] MEDS: LEVOTHYROXINE 50 MCG TAB PO SCH (08:14)
[2021-02-13] MEDS: BISOPROLOL-HCTZ 2.5-6.25 MG 1 EACH TAB PO SCH (08:14)
[2021-02-13] MEDS: DEXAMETHASONE SOD PHOSPHATE 10 MG/ML 1 ML VIAL IVP SCH (08:14)
[2021-02-13] MEDS: CHOLECALCIFEROL 25 MCG (1000 IU) TABLET PO SCH (08:14)
[2021-02-13] MEDS: FENOFIBRATE 160 MG TAB PO SCH (08:14)
[2021-02-13] MEDS: lisinopriL 20 MG TAB PO SCH (08:14)
[2021-02-13] MEDS: PANTOPRAZOLE 40 MG TABLET PO SCH (08:14)
[2021-02-13] MEDS: ZINC SULFATE 220 MG CAP PO SCH (08:14)
[2021-02-13] MEDS: ATORVASTATIN 40 MG TAB PO SCH (08:14)
[2021-02-13] MEDS: ENOXAPARIN 40 MG/0.4 ML SYRINGE SQ SCH (08:15)
[2021-02-13] MEDS: ASCORBIC ACID 500 MG TAB PO SCH ×2 (08:15→20:51)
[2021-02-13] MEDS: INSULIN ASPART (NovoLOG) 100 UNIT/ML VIAL SQ SCH ×7 (08:15→20:51)
[2021-02-13] MEDS: ASPIRIN 81 MG PO SCH (08:15)
[2021-02-13] MEDS: ICOSAPENT ETHYL 1 GM PO SCH ×2 (08:16→20:51)
[2021-02-13] MEDS: REMDESIVIR 100 MG in SODIUM CHLORIDE 0.9% 250 ML IVPB SCH (08:32)
[2021-02-13] MEDS: INSULIN DETEMIR (LEVEMIR) 100 UNIT/ML SYR SQ SCH (08:33)
[2021-02-13] MEDS: FUROSEMIDE 40 MG TAB PO SCH (08:33)
[2021-02-13] MEDS: NON FORMULARY DRUG (Semaglutide [Rybelsus] 3 MG Tablet) PO SCH (08:43)
[2021-02-13 09:38] LABS: C Reactive Protein 6.2 mg/dL (0.00-0.80)
[2021-02-13 12:02] LABS: Glucose,Whole Blood 259 mg/dL (75-99)
--- NOTE | 2021-02-13 12:30 | P.PN ---
Subjective Progress Note Date: 02/12/21 HISTORY OF PRESENT ILLNESS: This is a 65-year-old male one of my patient with a previous medical history significant for hypertension and hypertensive cardio vascular disease, hyperlipidemia, hypothyroidism, history of diabetes mellitus type 2 uncontrolled with hyperglycemia elevated hemoglobin A1c, super morbid obesity with obstructive sleep apnea bilateral tinnitus, patient presented to the emergency department at [facility] yesterday with increased shortness breath for the past 4-5 days, patient stated that [place] [facility] [place] was was his manuel but he was exposed to few people over the last week or so not sure of any sick contact, developed to have a significant shortness breath associated with increased coughing of phlegm production, no fever or chills no sore throat, patient presented to the ER he was found to have: Positive PCR, he was admitted to the hospital for evaluation and treatment he was started on Remdesevir 200 mg IV piggyback 1 followed by 100 mg once every day for the next 5 days, patient also was started on Lovenox 40 mg subcutaneously every 24 hours as well as dexamethasone 6 mg IV push every 24 hours, he was also supplied with vitamin C v itamin D and zinc sulfate and he was admitted to the hospital pulmonary consultation appreciated. 02/12: Patient complained of anxiety during the night 1 time dose of Xanax was ordered and patient states that did help and he does feel a little better today. Blood sugars are running in the 300s and scheduled NovoLog increased to 20 units 3 times daily plus scale and Levemir increased to 54 units on 02/11. He has been afebrile, heart rate 75, blood pressure 110/55, pulse ox 93% on 4 L. Patient is continued on dexamethasone, Lovenox,Remdesivir , vitamin supplements. Patient is seen and followed by pulmonary medicine. REVIEW OF SYSTEMS: Constitutional: No documented fever, no chills, positive for night sweats. No weight change. Positive for weakness, fatigue no lethargy. No daytime sleepiness. HEENT: No headache. No blurred vision or double vision, no loss of vision. No loss of Hearing, no ringing in the ears, no dizziness. No nasal drainage or congestion. No epistaxis. No sore throat. Lungs: Positive for shortness of breath, occasional cough, minimal sputum production. No wheezing. Reports dyspnea with activity. Cardiovascular: No chest pain, positive for lower extremity edema. Positive for palpitations. No paroxysmal nocturnal dyspnea. No orthopnea. No lighth eadedness or dizziness. No syncopal episodes. Abdominal: Reports abdominal pain. No nausea, vomiting. No diarrhea. No constipation. No bloody or tarry stools reports loss of appetite. Genitourinary: No dysuria, increased frequency, urgency. No urinary retention. Musculoskeletal: No myalgias. No muscle weakness, no gait dysfunction, no frequent falls. No back pain. No neck pain. Integumentary: No wounds, no lesions. No rash or pruritus. No unusual bruising. No change in hair or nails. Neurologic: No aphasia. No facial droop. No change in mentation. No head injury. No headache. No paralysis. No paresthesia. Psychiatric: No depression, positive for anxiety and panic attack. Endocrine: Noted abnormal blood sugars. No weight change. PHYSICAL EXAMINATION: General: 65-year-old male sitting up in bed in mild respiratory distress. HEENT: Head is atraumatic, normocephalic, pupils were equal round reactive to light and recommendation, extraocular muscle movement were intact, sclera nonicteric, conjunctivae were pale, mucous membranes of the mouth are somewhat dry. Neck: Supple, no JVP, normal carotid upstroke bilaterally, no lymphadenopathy. Chest: Decreased breath sounds at the bases, few rhonchi, no expiratory wheezes, no chest wall tenderness, no intercostal retractions. Heart: First heart sound is normal, second heart sounds normal systolic ejection murmur 2/6 located in the left sternal border Abdomen: Soft, nontender, nondistended, positive bowel sounds. Extremities: There is +2 edema no calf tenderness DP +2 bilaterally. Neurologic examination: Patient is awake alert and oriented X3, cranial nerves II-12 appear grossly intact, muscle power were 5 out of 5 in upper extremities and 5 out of 5 in bilateral lower extremities, deep tendon reflexes normal bilaterally. ASSESSMENT AND PLAN: 1. COVID-19 pneumonia. Continue oxygen support, continue Remdesivir 100 mg IV piggyback daily for 1/5 days, continue dexamethasone 6 mg IV push daily, gabriella nue 6 sulfate vitamin D and vitamin C, continue droplet isolation with eye protection, monitor the patient very closely, continue with albuterol HFA 2 puffs inhalation 4 hours, continue with Symbicort 160/4.5 g 2 puffs inhalation twice every day.Pulmonary consult appreciated 2. Diabetes mellitus type 2 with a steroid-induced hyperglycemia. Continue patient onsome ear increased to 54 units once every day along with the HumalogRees to 20 units before each meal 3 times every day, patient will resume his Rybelsus 7 mg orally once every day as well as Farxiga 10 mg orally once every day, monitor the patient blood glucose very closely, continue patient on Janumet as well. 3. Hypertension and hypertensive cardiovascular disease. Continue amlodipine 10 mg daily, continue Ziac 2.5/6.25 mg every day, continue with lisinopril 40 mg orally once every day monitor blood pressure closely. 4. Hyperlipidemia. Continue Lipitor 40 mg orally once every day. 5. Hypothyroidism. Continue patient on Synthroid 50 g orally once every day. 6. Obesity with obstructive sleep apnea. Continue with weight loss, patient may not use a CPAP right now. 7. MRSA carrier. 8. DVT prophylaxis. Lovenox 40 mg subcutaneously every 24 hours. 9. GI prophylaxis. Protonix 40 mg orally once every day. 10. Patient's full code. Impression and plan of care have been directed as dictated by the signing physician. Mariama Denise nurse practitioner acting as scribe for signing physician. Objective - Vital Signs Vital signs: Vital Signs Temp 97.8 F 02/12/21 06:57 Pulse 72 02/12/21 08:46 Resp 18 02/12/21 08:46 BP 149/99 02/12/21 08:46 Pulse Ox 97 02/12/21 08:46 Intake & Output 02/11/21 02/12/21 02/12/21 18:59 06:59 18:59 Weight 136.078 kg - Labs CBC & Chem 7: 02/11/21 11:05 02/11/21 11:05 Labs: Abnormal Lab Results - Last 24 Hours (Table) 02/11/21 02/11/21 02/12/21 Range/Units 12:57 17:11 07:35 POC Glucose (mg/dL) 257 H 313 H 306 H (75-99) mg/dL 02/12/21 Range/Units 12:35 POC Glucose (mg/dL) 335 H (75-99) mg/dL
--- NOTE | 2021-02-13 12:35 | P.PN ---
Subjective Progress Note Date: 02/13/21 HISTORY OF PRESENT ILLNESS: This is a 65-year-old male one of my patient with a previous medical history significant for hypertension and hypertensive cardio vascular disease, hyperlipidemia, hypothyroidism, history of diabetes mellitus type 2 uncontrolled with hyperglycemia elevated hemoglobin A1c, super morbid obesity with obstructive sleep apnea bilateral tinnitus, patient presented to the emergency department at [facility] yesterday with increased shortness breath for the past 4-5 days, patient stated that he was at the [facility] [place] and he was was his manuel but he was exposed to few people over the last week or so not sure of any sick contact, developed to have a significant shortness breath associated with increased coughing of phlegm production, no fever or chills no sore throat, patient presented to the ER he was found to have: Positive PCR, he was admitted to the hospital for evaluation and treatment he was started on Remdesevir 200 mg IV piggyback 1 followed by 100 mg once every day for the next 5 days, patient also was started on Lovenox 40 mg subcutaneously every 24 hours as well as dexamethasone 6 mg IV push every 24 hours, he was also supplied with vitamin C v itamin D and zinc sulfate and he was admitted to the hospital pulmonary consultation appreciated. 02/12: Patient complained of anxiety during the night 1 time dose of Xanax was ordered and patient states that did help and he does feel a little better today. Blood sugars are running in the 300s and scheduled NovoLog increased to 20 units 3 times daily plus scale and Levemir increased to 54 units on 02/11. He has been afebrile, heart rate 75, blood pressure 110/55, pulse ox 93% on 4 L. Patient is continued on dexamethasone, Lovenox,Remdesivir , vitamin supplements. Patient is seen and followed by pulmonary medicine. 02/13: Patient is seen today in follow-up. Lower extremity edema is improved. He denies having any pain in his legs. He denies having chest pain. Patient will be resumed on his home dose of Lasix 40 mg daily and IV fluids discontinued. He has been afebrile, heart rate 61, blood pressure 143/71. Pulse ox 94% on 4 L nasal cannula. Blood sugars continue to be high and Levemir increased to 60 units daily. REVIEW OF SYSTEMS: Constitutional: No documented fever, no chills, positive for night sweats. No weight change. Positive for weakness, fatigue no lethargy. No daytime sleepiness. HEENT: No headache. No blurred vision or double vision, no loss of vision. No loss of Hearing, no ringing in the ears, no dizziness. No nasal drainage or congestion. No epistaxis. No sore throat. Lungs: Positive for shortness of breath, occasional cough, minimal sputum p roduction. No wheezing. Reports dyspnea with activity. Cardiovascular: No chest pain, positive for lower extremity edema. Positive for palpitations. No paroxysmal nocturnal dyspnea. No orthopnea. No lightheadedness or dizziness. No syncopal episodes. Abdominal: Reports abdominal pain. No nausea, vomiting. No diarrhea. No constipation. No bloody or tarry stools reports loss of appetite. Genitourinary: No dysuria, increased frequency, urgency. No urinary retention. Musculoskeletal: No myalgias. No muscle weakness, no gait dysfunction, no frequent falls. No back pain. No neck pain. Integumentary: No wounds, no lesions. No rash or pruritus. No unusual bruising. Neurologic: No aphasia. No facial droop. No change in mentation. No head injury. No headache. No paralysis. No paresthesia. Psychiatric: No depression, positive for anxiety and panic attack. Endocrine: Noted abnormal blood sugars. No weight change. PHYSICAL EXAMINATION: General: 65-year-old lady obese male sitting on the edge of the bed in no acute respiratory distress. HEENT: Head is atraumatic, normocephalic, pupils were equal round reactive to light and recommendation, extraocular muscle movement were intact, sclera nonicteric, conjunctivae were pale, mucous membranes of the mouth are somewhat dry. Neck: Supple, no JVP, normal carotid upstroke bilaterally, no lymphadenopathy. Chest: Decreased breath sounds at the bases, few rhonchi, no expiratory wheezes, no chest wall tenderness, no intercostal retractions. Heart: First heart sound is normal, second heart sounds normal systolic ejection murmur 2/6 located in the left sternal border Abdomen: Soft, nontender, nondistended, positive bowel sounds. Extremities: There is +2 edema no calf tenderness DP +2 bilaterally. Neurologic examination: Patient is awake alert and oriented X3, cranial nerves II-12 appear grossly intact, muscle power were 5 out of 5 in upper extremities and 5 out of 5 in bilateral lower extremities. ASSESSMENT AND PLAN: 1. COVID-19 pneumonia. Continue oxygen support, continue Remdesivir 100 mg IV piggyback daily for 1/5 days, continue dexamethasone 6 mg IV push daily, continue 6 sulfate vitamin D and vitamin C, continue droplet isolation with eye protection, monitor the patient very closely, continue with albuterol HFA 2 puffs inhalation 4 hours, continue with Symbicort 160/4.5 g 2 puffs inhalation twice every day.Pulmonary consult appreciated 2. Diabetes mellitus type 2 with a steroid-induced hyperglycemia. Continue patient onsome ear increased to 54 units once every day along with the HumalogRees to 20 units before each meal 3 times every day, patient will resume his Rybelsus 7 mg orally once every day as well as Farxiga 10 mg orally once every day, monitor the patient blood glucose very closely, continue patient on Janumet as well. 3. Hypertension and hypertensive cardiovascular disease. Continue amlodipine 10 mg daily, continue Ziac 2.5/6.25 mg every day, continue with lisinopril 40 mg orally once every day monitor blood pressure closely. Resume Lasix 40 mg daily. 4. Hyperlipidemia. Continue Lipitor 40 mg orally once every day. 5. Hypothyroidism. Continue patient on Synthroid 50 g orally once every day. 6. Obesity with obstructive sleep apnea. Continue with weight loss, patient may not use a CPAP right now. 7. MRSA carrier. 8. DVT prophylaxis. Lovenox 40 mg subcutaneously every 24 hours. 9. GI prophylaxis. Protonix 40 mg orally once every day. 10. Patient's full code. Impression and plan of care have been directed as dictated by the signing physician. Mariama Denise nurse practitioner acting as scribe for signing physician. Objective - Vital Signs Vital signs: Vital Signs Temp 98.0 F 02/13/21 05:20 Pulse 61 02/13/21 05:20 Resp 16 02/13/21 01:00 BP 143/71 02/13/21 05:20 Pulse Ox 94 L 02/13/21 05:20 Intake & Output 02/12/21 02/13/21 02/13/21 18:59 06:59 18:59 Intake Total 236 Balance 236 Weight 136.078 kg Intake: Oral 236 Other: Voiding Method Toilet # Voids 1 2 # Bowel Movements 0 - Labs CBC & Chem 7: 02/11/21 11:05 02/11/21 11:05 Labs: Abnormal Lab Results - Last 24 Hours (Table) 02/12/21 02/12/21 02/12/21 Range/Units 12:35 16:58 18:36 POC Glucose (mg/dL) 335 H 418 H (75-99) mg/dL C-Reactive Protein 15.0 H (<1.0) mg/dL 02/12/21 02/13/21 Range/Units 20:29 07:03 POC Glucose (mg/dL) 364 H 275 H (75-99) mg/dL C-Reactive Protein (<1.0) mg/dL
--- NOTE | 2021-02-13 13:44 | P.PN ---
Subjective Progress Note Date: 02/13/21 65-year-old male patient presented with shortness of breath and his symptoms onset was approximately a week ago and the patient was diagnosed having COVID 19 related pneumonia. The patient's presented to the hospital and the patient's was found to be afebrile, hypertensive initially with a pulse ox of 92% on room air oxygen. The blood work showed a d-dimer of 0.44, sodium level of 1:30, serum bicarb of 18 with anion gap of 18 with a creatinine of 0.7, normal LFTs, troponin was negative and the proBNP level was 112. COVID 19 was positive. Chest x-ray showed bilateral pulmonary infiltrates, peripheral distribution mainly in the mid and lower lung dinh bilaterally. At this point in time, the patient is on oxygen and he is on 3 L to bring his saturation at 96%. His comorbid conditions include hypertension, diabetes, hyperlipidemia, impaired hearing, obstructive sleep apnea and the patient is obese with a BMI of 45.6. He also has history of hypothyroidism. He is a former smoker. 02/12/2021, the patient remains in the emergency department. He is stable on 4 L approximately nasal cannula. He is receiving his second dose of Remdesivir and the patient is also on Decadron. His oxygen requirements up to 4 L for now and the pulse ox is in order of 96%. He has developed some steroid-induced hyperglycemia. Hemodynamically stable. No other significant events overnight. His LDH level was not measured and were still awaiting for the results. His d- dimer is at 0.44.. He is tolerating his diet. He is resting comfortably. He denies having any specific complaints for now. On 02/13/2021 patient seen in follow-up on medical surgical floor, he is currently off oxygen completely, breathing comfortably, lung sounds reveal minimal bibasilar crackles, no rhonchi or wheezing, no chest discomfort, patient has been tolerating ambulation, with ambulation his pulse ox did drop down to 85% and as such patient does qualify for home oxygen until complete recovery, today is day 3 of Remdesivir, he remains on Decadron, vital signs have been stable, he has no specific complaints, he is tolerating oral intake, no nausea vomiting or diarrhea, no abdominal pain. Today's labs reviewed showing of 0.27, LDH is improving and is down to 218, and CRP is 6.20. Objective - Vital Signs Vital signs: Vital Signs Temp 97.9 F 02/13/21 10:00 Pulse 63 02/13/21 10:00 Resp 19 02/13/21 10:00 BP 139/70 02/13/21 10:00 Pulse Ox 89 L 02/13/21 13:37 Intake & Output 02/12/21 02/13/21 02/13/21 18:59 06:59 18:59 Intake Total 236 Balance 236 Weight 136.078 kg Intake: Oral 236 Other: Voiding Method Toilet Toilet Urinal # Voids 1 2 # Bowel Movements 0 - Exam GENERAL EXAM: Alert, comfortable in no apparent distress. HEAD: Normocephalic/atraumatic. EYES: Normal reaction of pupils, equal size. Conjunctiva pink, sclera white. NOSE: Clear with pink turbinates. THROAT: No erythema or exudates. NECK: No masses, no JVD, no thyroid enlargement, no adenopathy. CHEST: No chest wall deformity. Symmetrical expansion. LUNGS: Equal air entry with mild crackles, wheeze, rhonchi or dullness. CVS: Regular rate and rhythm, normal S1 and S2, no gallops, no murmurs, no rubs ABDOMEN: Soft, nontender. No hepatosplenomegaly, normal bowel sounds, no guarding or rigidity. EXTREMITIES: No clubbing, no edema, no cyanosis, 2+ pulses and upper and lower extremities. MUSCULOSKELETAL: Muscle strength and tone normal. SPINE: No scoliosis or deformity SKIN: No rashes CENTRAL NERVOUS SYSTEM: Alert and oriented -3. No focal deficits, tone is normal in all 4 extremities. PSYCHIATRIC: Alert and oriented -3. Appropriate affect. Intact judgment and insight. - Labs CBC & Chem 7: 02/11/21 11:05 02/11/21 11:05 Labs: Abnormal Lab Results - Last 24 Hours (Table) 02/12/21 02/12/21 02/12/21 Range/Units 16:58 18:36 20:29 POC Glucose (mg/dL) 418 H 364 H (75-99) mg/dL C-Reactive Protein 15.0 H (<1.0) mg/dL 02/13/21 02/13/21 02/13/21 Range/Units 05:59 07:03 12:01 POC Glucose (mg/dL) 275 H 259 H (75-99) mg/dL C-Reactive Protein 6.20 H (<1.0) mg/dL Assessment and Plan Plan: Assessment: 1 acute bilateral COVID 19 related pneumonia. Symptoms started approximately a week ago. The patient is a vaccinated individual and he received 2 doses of messenger RNA back in May 2020. Currently is presenting with typical COVID 19 symptoms and he was confirmed to have COVID 19 infection. The patient is clinically stable on 4 L about 2 by nasal cannula 2 acute hypoxic respiratory failure secondary to above and the patient is currently on 4L of oxygen by nasal cannula, improving and patient is currently on room air 3 morbid obesity with a BMI of 45.6 4 obstructive sleep apnea maintained on CPAP therapy at pressure of 15 cm of water and the patient is carrying his CPAP unit with him 5 hypothyroidism 6 diabetes mellitus type 2 7 chronic back pain 8 acid reflux 9 impaired hearing Plan: FiO2 is currently down to room air Patient is satting 89-90%, however did qualify for home o2 with ambulation Patient will likely need home oxygen to go home with Clinically she is stable, he has no complaints of worsening dyspnea, he is tolerating ambulation Patient is status post completed vaccination in the spring 2020 His inflammatory markers are improving He could be considered for discharge home today from pulmonary perspective he does not need to finish his course of Remdesivir if he gets discharged Complete outpatient course of oral Decadron for a total of 10 days Outpatient follow-up with Dr. Forbes in the office in 2 weeks I performed a history & physical examination of the patient and discussed their management with my nurse practitioner, Kim Bertrand. I reviewed the nurse practitioner's note and agree with the documented findings and plan of care. Lung sounds are positive for minimal rales throughout the lung dinh. The findings and the impression was discussed with the patient. I attest to the documentation by the nurse practitioner. Time with Patient: Less than 30
[2021-02-13 16:56] LABS: Glucose,Whole Blood 290 mg/dL (75-99)
[2021-02-13 20:29] LABS: Glucose,Whole Blood 261 mg/dL (75-99)
[2021-02-14 02:39] VITALS: RESP 16
[2021-02-14 05:51] VITALS: BP 162/69; PULSE 58; TEMP 97.4
[2021-02-14 07:23] LABS: Glucose,Whole Blood 169 mg/dL (75-99)
--- NOTE | 2021-02-14 08:25 | P.DS ---
Providers Date of admission: 02/11/21 12:22 Expected date of discharge: 02/14/21 Attending physician: Kenneth Gary Consults: 02/11/21 12:23 Consult Physician Routine Consulting Provider: Sonia Forbes Consult Reason/Comments: covid, hypoxia Do you want consulting provider notified?: Yes Primary care physician: Kenneth Gary [facility] Course: HISTORY OF PRESENT ILLNESS: This is a 65-year-old male one of my patient with a previous medical history significant for hypertension and hypertensive cardio vascular disease, hyperlipidemia, hypothyroidism, history of diabetes mellitus type 2 uncontrolled with hyperglycemia elevated hemoglobin A1c, super morbid obesity with obstructive sleep apnea bilateral tinnitus, patient presented to the emergency department at [facility] yesterday with increased shortness breath for the past 4-5 days, patient stated that he was at the [facility] [place] and he was was his manuel but he was exposed to few people over the last week or so not sure of any sick contact, developed to have a significant shortness breath associated with increased coughing of phlegm production, no fever or chills no sore throat, patient presented to the ER he was found to have: Positive PCR, he was admitted to the hospital for evaluation and treatment he was started on Remdesevir 200 mg IV piggyback 1 followed by 100 mg once every day for the next 5 days, patient also was started on Lovenox 40 mg subcutaneously every 24 hours as well as dexamethasone 6 mg IV push every 24 hours, he was also supplied with vitamin C vitamin D and zinc sulfate and he was admitted to the hospital pulmonary consultation appreciated. 02/12: Patient complained of anxiety during the night 1 time dose of Xanax was ordered and patient states that did help and he does feel a little better today. Blood sugars are running in the 300s and scheduled NovoLog increased to 20 units 3 times daily plus scale and Levemir increased to 54 units on 02/11. He has been afebrile, heart rate 75, blood pressure 110/55, pulse ox 93% on 4 L. Patient is continued on dexamethasone, Lovenox,Remdesivir , vitamin supplements. Patient is seen and followed by pulmonary medicine. 02/13: Patient is seen today in follow-up. Lower extremity edema is improved. He denies having any pain in his legs. He denies having chest pain. Patient will be resumed on his home dose of Lasix 40 mg daily and IV fluids discontinued. He has been afebrile, heart rate 61, blood pressure 143/71. Pulse ox 94% on 4 L nasal cannula. Blood sugars continue to be high and Levemir increased to 60 units daily. 02/14: Patient has been cleared for discharge by pulmonary medicine. He has been afebrile, heart rate 58, blood pressure 162/69, pulse ox 94% on CPAP and 92% on 2 L nasal cannula. Home oxygen assessment found pulse ox of 85% with ambulation Oxygen will be arranged by [employer]. Patient will be discharged today in stable condition. DISCHARGE DIAGNOSES: 1. COVID-19 pneumonia. 2. Diabetes mellitus type 2 with a steroid-induced hyperglycemia. 3. Hypertension and hypertensive cardiovascular disease. 4. Hyperlipidemia. 5. Hypothyroidism. 6. Obesity with obstructive sleep apnea. 7. MRSA carrier. 8. Chronic hypoxic respiratory failure secondary to Covid 19 DISCHARGE PLAN Home Greater than 35 minutes was utilized and coordinating patient's discharge. Impression and plan of care have been directed as dictated by the signing physician. Mariama Denise nurse practitioner acting as scribe for signing physician. Patient Condition at Discharge: Serious Plan - Discharge Summary Discharge Rx Participant: No New Discharge Prescriptions: New Dexamethasone [Decadron] 6 mg PO DAILY #5 tablet Zinc Sulfate [Orazinc] 220 mg PO DAILY cap Ascorbic Acid [Vitamin C] 500 mg PO BID tab Continue Cholecalciferol [Vitamin D3 (25 Mcg = 1000 Iu)] 2,000 unit PO DAILY Furosemide [Lasix] 40 mg PO DAILY Aspirin EC [Ecotrin Low Dose] 81 mg PO DAILY sitaGLIPtin PHOS/metFORMIN HCL [Janumet 50-1,000 mg Tablet] 1 tab PO DAILY Ramipril 10 mg PO DAILY Levothyroxine Sodium [Synthroid] 50 mcg PO DAILY Lansoprazole 30 mg PO DAILY Fenofibrate [Lofibra] 160 mg PO DAILY Canagliflozin [Invokana] 100 mg PO DAILY Bisoprolol-Hctz 2.5-6.25 mg [Ziac 2.5-6.25 MG] 1 tab PO DAILY amLODIPine [Norvasc] 10 mg PO DAILY Atorvastatin [Lipitor] 40 mg PO DAILY icosapent ethyL [Icosapent Ethyl] 2 gm PO BID Semaglutide [Rybelsus] 3 mg PO DAILY Changed Insulin Aspart [NovoLOG Flexpen] 20 units SQ AC-TID #0 Insulin Degludec [Tresiba Flextouch U-200 Pen] 60 units SQ DAILY #0 Discharge Medication List Aspirin EC [Ecotrin Low Dose] 81 mg PO DAILY 06/06/19 [History] Atorvastatin [Lipitor] 40 mg PO DAILY 06/06/19 [History] Bisoprolol-Hctz 2.5-6.25 mg [Ziac 2.5-6.25 MG] 1 tab PO DAILY 06/06/19 [History] Canagliflozin [Invokana] 100 mg PO DAILY 06/06/19 [History] Cholecalciferol [Vitamin D3 (25 Mcg = 1000 Iu)] 2,000 unit PO DAILY 06/06/19 [History] Fenofibrate [Lofibra] 160 mg PO DAILY 06/06/19 [History] Furosemide [Lasix] 40 mg PO DAILY 06/06/19 [History] Lansoprazole 30 mg PO DAILY 06/06/19 [History] Levothyroxine Sodium [Synthroid] 50 mcg PO DAILY 06/06/19 [History] Ramipril 10 mg PO DAILY 06/06/19 [History] amLODIPine [Norvasc] 10 mg PO DAILY 06/06/19 [History] sitaGLIPtin PHOS/metFORMIN HCL [Janumet 50-1,000 mg Tablet] 1 tab PO DAILY 06/06/19 [History] Semaglutide [Rybelsus] 3 mg PO DAILY 02/11/21 [History] icosapent ethyL [Icosapent Ethyl] 2 gm PO BID 02/11/21 [History] Ascorbic Acid [Vitamin C] 500 mg PO BID tab 02/14/21 [Rx] Dexamethasone [Decadron] 6 mg PO DAILY #5 tablet 02/14/21 [Rx] Insulin Aspart [NovoLOG Flexpen] 20 units SQ AC-TID #0 02/14/21 [Rx] Insulin Degludec [Tresiba Flextouch U-200 Pen] 60 units SQ DAILY #0 02/14/21 [Rx] Zinc Sulfate [Orazinc] 220 mg PO DAILY cap 02/14/21 [Rx] Follow up Appointment(s)/Referral(s): Kenneth Gary MD [Primary Care Provider] - 1-2 days (office not answering Please call to schedule appointment ) [facility] [NON-STAFF] - (*Please call [facility] once home to arrange delivery of the oxygen concentrator. ) Sonia Forbes MD [STAFF PHYSICIAN] - 03/13/21 2:00 pm ([facility]) Patient Instructions/Handouts: Coronavirus Disease 2019 (COVID-19) Discharge Disposition: HOME SELF-CARE
[2021-02-14] MEDS: INSULIN ASPART (NovoLOG) 100 UNIT/ML VIAL SQ SCH ×2 (08:39→08:40)
[2021-02-14] MEDS: DEXAMETHASONE SOD PHOSPHATE 10 MG/ML 1 ML VIAL IVP SCH (08:39)
[2021-02-14] MEDS: INSULIN DETEMIR (LEVEMIR) 100 UNIT/ML SYR SQ SCH (08:39)
[2021-02-14] MEDS: ENOXAPARIN 40 MG/0.4 ML SYRINGE SQ SCH (08:39)
[2021-02-14] MEDS: FENOFIBRATE 160 MG TAB PO SCH (08:40)
[2021-02-14] MEDS: ASCORBIC ACID 500 MG TAB PO SCH (08:40)
[2021-02-14] MEDS: ZINC SULFATE 220 MG CAP PO SCH (08:40)
[2021-02-14] MEDS: amLODIPine 10 MG TAB PO SCH (08:40)
[2021-02-14] MEDS: CHOLECALCIFEROL 25 MCG (1000 IU) TABLET PO SCH (08:40)
[2021-02-14] MEDS: ASPIRIN 81 MG PO SCH (08:40)
[2021-02-14] MEDS: lisinopriL 20 MG TAB PO SCH (08:40)
[2021-02-14] MEDS: ATORVASTATIN 40 MG TAB PO SCH (08:41)
[2021-02-14] MEDS: REMDESIVIR 100 MG in SODIUM CHLORIDE 0.9% 250 ML IVPB SCH (08:41)
[2021-02-14] MEDS: FUROSEMIDE 40 MG TAB PO SCH (08:41)
[2021-02-14] MEDS: metFORMIN 500 MG TAB PO SCH (08:41)
[2021-02-14] MEDS: BISOPROLOL-HCTZ 2.5-6.25 MG 1 EACH TAB PO SCH (08:41)
[2021-02-14] MEDS: PANTOPRAZOLE 40 MG TABLET PO SCH (08:41)
[2021-02-14] MEDS: LINAGLIPTIN 5 MG TABLET PO SCH (08:41)
[2021-02-14] MEDS: LEVOTHYROXINE 50 MCG TAB PO SCH (08:41)
[2021-02-14] MEDS: NON FORMULARY DRUG (Semaglutide [Rybelsus] 3 MG Tablet) PO SCH (08:44)
[2021-02-14] MEDS: ICOSAPENT ETHYL 1 GM PO SCH (08:44)
== END 2021-02-14 10:33 | disposition home or self-care (01) | DRG 177 ==
LOC: EC 10:13 → 4SSUR 12:22
PROVIDERS: ADMIT Internal Medicine; ATTEND Internal Medicine
PROC: XW033E5 Introduction of Remdesivir Anti-infective into Peripheral Vein, Percutaneous Approach, New Technology Group 5 (ICD-10-PCS; principal; 2021-02-11)
DX: U07.1 COVID-19 (principal); J12.82 Pneumonia due to coronavirus disease 2019; J96.21 Acute and chronic respiratory failure with hypoxia; Z68.42 Body mass index [BMI] 45.0-49.9, adult; Z16.24 Resistance to multiple antibiotics; E03.9 Hypothyroidism, unspecified; E11.42 Type 2 diabetes mellitus with diabetic polyneuropathy; E11.65 Type 2 diabetes mellitus with hyperglycemia; E66.01 Morbid (severe) obesity due to excess calories; E78.5 Hyperlipidemia, unspecified; G47.33 Obstructive sleep apnea (adult) (pediatric); G89.29 Other chronic pain; H91.90 Unspecified hearing loss, unspecified ear; K21.9 Gastro-esophageal reflux disease without esophagitis; H93.13 Tinnitus, bilateral; M54.50 Low back pain, unspecified; Z79.4 Long term (current) use of insulin; Z79.82 Long term (current) use of aspirin; Z79.84 Long term (current) use of oral hypoglycemic drugs; Z79.890 Hormone replacement therapy; Z79.899 Other long term (current) drug therapy; Z82.3 Family history of stroke; Z87.891 Personal history of nicotine dependence; I11.9 Hypertensive heart disease without heart failure; Z22.322 Carrier or suspected carrier of Methicillin resistant Staphylococcus aureus; T38.0X5A Adverse effect of glucocorticoids and synthetic analogues, initial encounter
CPT/HCPCS: 36415; 71046; 80053; 83605; 83615; 83880; 84484; 85025; 85379; 85610; 85730; 86140; 87502; 87635; 93005; 99285

== ENCOUNTER 2023-01-21 14:17 | Emergency (ER) | payer BC, MEDICARE ==
[2023-01-21 14:52] VITALS: RESP 18
[2023-01-21 15:25] LABS: Basophils % (A) 0 %; Eosinophils # (A) 0.1 k/uL (0-0.7); Eosinophils % (A) 1 %; HCT 45.2 % (39.0-53.0); HGB 15.1 gm/dL (13.0-17.5); Lymphocytes # (A) 1.6 k/uL (1.0-4.8); Lymphocytes % (A) 16 %; MCH 32.1 pg (25.0-35.0); MCHC 33.4 g/dL (31.0-37.0); MCV 95.9 fL (80.0-100.0); Mean Platelet Volume 8.3; Monocytes # (A) 0.6 k/uL (0-1.0); Monocytes % (A) 6 %; Neutrophils # (A) 7.3 k/uL (1.3-7.7); Neutrophils % (A) 73 %; Platelet Count 242 k/uL (150-450); RBC 4.71 m/uL (4.30-5.90); RDW 12.8 % (11.5-15.5)
--- NOTE | 2023-01-21 15:35 | ED ---
General Adult HPI - General Chief complaint: Skin/Abscess/Foreign Body Stated complaint: spot on right groin area Time Seen by Provider: 01/21/23 15:21 Source: patient, RN notes reviewed, old records reviewed Mode of arrival: ambulatory - History of Present Illness Initial comments: 67-year-old male who presents for swelling in the right groin with erythema. No pain. No fever. Patient is a type II diabetic. He had similar issue in the left groin several years ago which required incision and drainage and antibiotics. Patient denies any pain. Denies any scrotal swelling or scrotal pain. This is just below the abdomen. - Related Data Home Medications Medication Instructions Recorded Confirmed Aspirin EC [Ecotrin Low Dose] 81 mg PO DAILY 06/06/19 02/11/21 Atorvastatin [Lipitor] 40 mg PO DAILY 06/06/19 02/11/21 Bisoprolol-Hctz 2.5-6.25 mg [Ziac 1 tab PO DAILY 06/06/19 02/11/21 2.5-6.25 MG] Canagliflozin [Invokana] 100 mg PO DAILY 06/06/19 02/11/21 Cholecalciferol [Vitamin D3 (25 2,000 unit PO DAILY 06/06/19 02/11/21 Mcg = 1000 Iu)] Fenofibrate [Lofibra] 160 mg PO DAILY 06/06/19 02/11/21 Furosemide [Lasix] 40 mg PO DAILY 06/06/19 02/11/21 Lansoprazole 30 mg PO DAILY 06/06/19 02/11/21 Levothyroxine Sodium [Synthroid] 50 mcg PO DAILY 06/06/19 02/11/21 amLODIPine [Norvasc] 10 mg PO DAILY 06/06/19 02/11/21 ramipriL [Ramipril] 10 mg PO DAILY 06/06/19 02/11/21 sitaGLIPtin PHOS/metFORMIN HCL 1 tab PO DAILY 06/06/19 02/11/21 [Janumet 50-1,000 mg Tablet] Semaglutide [Rybelsus] 3 mg PO DAILY 02/11/21 02/11/21 icosapent ethyL [Icosapent Ethyl] 2 gm PO BID 02/11/21 02/11/21 Previous Rx's Medication Instructions Recorded Ascorbic Acid [Vitamin C] 500 mg PO BID tab 02/14/21 Insulin Aspart [NovoLOG Flexpen] 20 units SQ AC-TID #0 02/14/21 Insulin Degludec [Tresiba 60 units SQ DAILY #0 02/14/21 Flextouch U-200 Pen] Zinc Sulfate [Orazinc] 220 mg PO DAILY cap 02/14/21 dexAMETHasone [Decadron] 6 mg PO DAILY #5 tablet 02/14/21 Cephalexin [Keflex] 500 mg PO Q6HR 10 Days #40 cap 01/21/23 Sulfamethox-Tmp 800-160Mg [Bactrim 1 tab PO Q12HR #28 tab 01/21/23 DS 800-160 mg] Allergies Allergy/AdvReac Type Severity Reaction Status Date / Time No Known Allergies Allergy Verified 01/21/23 14:45 Review of Systems ROS Statement: Those systems with pertinent positive or pertinent negative responses have been documented in the HPI. ROS Other: All systems not noted in ROS Statement are negative. Past Medical History Past Medical History: Diabetes Mellitus, GERD/Reflux, Hearing Disorder / Deafness, Hyperlipidemia, Hypertension, Sleep Apnea/CPAP/BIPAP, Thyroid Disorder Additional Past Medical History / Comment(s): COVID +, IDDM type II, YARITZA with Cpap use, lower leg/pedal edema, hypothyroid, bilateral tinnitis, [place] bilaterally with L ear worse, low back pain. History of Any Multi-Drug Resistant Organisms: MRSA Date of last positivie culture/infection: back MDRO Source:: 2014 Past Surgical History: Cholecystectomy, Tonsillectomy Additional Past Surgical History / Comment(s): Sinus surgery/benign polypectomy, colonoscopy/benign polypectomy Past Anesthesia/Blood Transfusion Reactions: No Reported Reaction Past Psychological History: No Psychological Hx Reported Smoking Status: Former smoker Past Alcohol Use History: Occasional Past Drug Use History: None Reported - Past Family History Father History Unknown: Yes Additional Family Medical History / Comment(s): Pt never met his father. Mother Family Medical History: CVA/TIA General Exam General appearance: alert, in no apparent distress Head exam: Present: atraumatic, normocephalic Eye exam: Present: normal appearance, PERRL ENT exam: Present: normal exam Neck exam: Present: normal inspection. Absent: tenderness, meningismus Respiratory exam: Present: normal lung sounds bilaterally. Absent: respiratory distress, wheezes Cardiovascular Exam: Present: regular rate, normal rhythm GI/Abdominal exam: Present: soft, other (Right groin there is an area of the induration without fluctuance, minimal erythema, no tenderness, no crepitus, normal scrotum). Absent: distended, tenderness, guarding Extremities exam: Present: normal inspection Neurological exam: Present: alert, oriented X3, CN II-XII intact. Absent: motor sensory deficit Psychiatric exam: Present: normal affect, normal mood Skin exam: Present: warm, dry Course Vital Signs 01/21/23 14:39 Temperature 99.1 F Pulse Rate 85 Respiratory 18 Rate Blood Pressure 159/77 O2 Sat by Pulse 95 Oximetry Procedures - Incision & Drainage Consent Obtained: verbal consent Indication: Access Site: abdomen I&D Cleaning Method: Chloroprep Sterile Field Used?: No Ultrasound used: No Needle Aspiration Performed?: Yes Irrigation Performed?: No I&D Drainage Obtained: Pus Insertion of drain: No Culture Obtained?: Yes Patient Tolerated Procedure: well Medical Decision Making - Medical Decision Making Was pt. sent in by a medical professional or institution (, PA, TRANSFORMER MOLDER, urgent care, hospital, or half-way...) When possible be specific @ -No Did you speak to anyone other than the patient for history (EMS, parent, family, police, friend...)? What history was obtained from this source @ -No Did you review nursing and triage notes (agree or disagree)? Why? @ -I reviewed and agree with nursing and triage notes Were old charts reviewed (outside hosp., previous admission, EMS record, old EKG, old radiological studies, urgent care reports/EKG's, half-way records)? Report findings @ -No old charts were reviewed Differential Diagnosis (chest pain, altered mental status, abdominal pain women, abdominal pain men, vaginal bleeding, weakness, fever, dyspnea, syncope, headache, dizziness, GI bleed, back pain, seizure, CVA, palpatations, mental health, musculoskeletal)? @ -[Inguinal abscess, cellulitis, Gisel's gangrene EKG interpreted by me (3pts min.). @ -As above X-rays interpreted by me (1pt min.). @ -None done CT interpreted by me (1pt min.). @ -None done U/S interpreted by me (1pt. min.). @ -None done What testing was considered but not performed or refused? (CT, X-rays, U/S, labs)? Why? @ -None What meds were considered but not given or refused? Why? @ -None Did you discuss the management of the patient with other professionals (professionals i.e. , PA, TRANSFORMER M[employer]DER, lab, RT, psych nurse, manager social responsibility, lard maker, teacher, chief school finance officer, medical case manager)? Give summary @ -No Was smoking cessation discussed for >3mins.? @ -No Was critical care preformed (if so, how long)? @ -No Were there social determinants of health that impacted care today? How? (Homelessness, low income, unemployed, alcoholism, drug addiction, transportation, low edu. Level, literacy, decrease access to med. care, intermediate, rehab)? @ -No Was there de-escalation of care discussed even if they declined (Discuss DNR or withdrawal of care, Hospice)? DNR status @ -No What co-morbidities impacted this encounter? (DM, HTN, Smoking, COPD, CAD, Cancer, CVA, ARF, Chemo, Hep., AIDS, mental health diagnosis, sleep apnea, morbid obesity)? @ -[Diabetes. Was patient admitted / discharged? Hospital course, mention meds given and route, prescriptions, significant lab abnormalities, going to OR and other pertinent info. @ -[67-year-old male with small abscess in the right inguinal region. This is nontender. There is no crepitus. There is no extension into the scrotum. The patient is afebrile well-appearing without pain. Ultrasound showed a small fluid collection suggestive of abscess. I was able to aspirate with an 18-gauge needle for drainage. Obtained approximately 3 mL of neema pus this was sent for culture. The patient was agreeable with oral antibiotics and strict return parameters. Undiagnosed new problem with uncertain prognosis? @ -No Drug Therapy requiring intensive monitoring for toxicity (Heparin, Nitro, Insulin, Cardizem)? @ -No Were any procedures done? @ -[Yes, incision and drainage Diagnosis/symptom? @ -Groin abscess Acute, or Chronic, or Acute on Chronic? @ -[Acute Uncomplicated (without systemic symptoms) or Complicated (systemic symptoms)? @ -default Side effects of treatment? @ -No Exacerbation, Progression, or Severe Exacerbation? @ -No Poses a threat to life or bodily function? How? (Chest pain, [place], SD, pneumonia, PE, COPD, DKA, ARF, appy, cholecystitis, CVA, Diverticulitis, Homicidal, Suicidal, threat to staff... and all critical care pts) @ -[Low risk at this time - Lab Data Result diagrams: 01/21/23 14:54 01/21/23 14:54 Lab Results 01/21/23 01/21/23 Range/Units 14:54 14:54 WBC 10.0 (3.8-10.6) k/uL RBC 4.71 (4.30-5.90) m/uL Hgb 15.1 (13.0-17.5) gm/dL Hct 45.2 (39.0-53.0) % MCV 95.9 (80.0-100.0) fL MCH 32.1 (25.0-35.0) pg MCHC 33.4 (31.0-37.0) g/dL RDW 12.8 (11.5-15.5) % Plt Count 242 (150-450) k/uL MPV 8.3 Neutrophils % 73 % Lymphocytes % 16 % Monocytes % 6 % Eosinophils % 1 % Basophils % 0 % Neutrophils # 7.3 (1.3-7.7) k/uL Lymphocytes # 1.6 (1.0-4.8) k/uL Monocytes # 0.6 (0-1.0) k/uL Eosinophils # 0.1 (0-0.7) k/uL Basophils # 0.0 (0-0.2) k/uL Sodium 137 (137-145) mmol/L Potassium 4.5 (3.5-5.1) mmol/L Chloride 100 (98-107) mmol/L Carbon Dioxide 26 (22-30) mmol/L Anion Gap 11 mmol/L BUN 13 (9-20) mg/dL Creatinine 0.67 (0.66-1.25) mg/dL Est GFR (CKD-EPI)AfAm >90 (>60 ml/min/1.73 sqM) Est GFR (CKD-EPI)NonAf >90 (>60 ml/min/1.73 sqM) Glucose 405 H (74-99) mg/dL Calcium 9.5 (8.4-10.2) mg/dL Total Bilirubin 0.7 (0.2-1.3) mg/dL AST 24 (17-59) U/L ALT 36 (4-49) U/L Alkaline Phosphatase 98 (38-126) U/L Total Protein 7.3 (6.3-8.2) g/dL Albumin 4.3 (3.5-5.0) g/dL Disposition Clinical Impression: Abscess Disposition: HOME SELF-CARE Instructions (If sedation given, give patient instructions): Abscess Incision and Drainage (ED) Prescriptions: Sulfamethox-Tmp 800-160Mg [Bactrim DS 800-160 mg] 1 tab PO Q12HR #28 tab Cephalexin [Keflex] 500 mg PO Q6HR 10 Days #40 cap Is patient prescribed a controlled substance at d/c from ED?: No Referrals: Kenneth Gary MD [Primary Care Provider] - 1-2 days Time of Disposition: 17:04
[2023-01-21 15:38] LABS: ALT 36 U/L (4-49); AST 24 U/L (17-59); African American GFR (CKD) >90 (>60 ml/min/1.73 sqM); Albumin 4.3 g/dL (3.5-5.0); Alkaline Phosphatase 98 U/L (38-126); Anion Gap 11 mmol/L; Blood Urea Nitrogen 13 mg/dL (9-20); Calcium 9.5 mg/dL (8.4-10.2); Carbon Dioxide 26 mmol/L (22-30); Chloride 100 mmol/L (98-107); Glucose 405 mg/dL (74-99); Non-African American GFR(CKD) >90 (>60 ml/min/1.73 sqM); Potassium 4.5 mmol/L (3.5-5.1); Sodium 137 mmol/L (137-145); Total Bilirubin 0.7 mg/dL (0.2-1.3); Total Protein 7.3 g/dL (6.3-8.2)
--- NOTE | 2023-01-21 15:52 | US ---
EXAMINATION TYPE: US groin RT DATE OF EXAM: 01/21/2023 COMPARISON: CT pelvis 06/06/2019 CLINICAL INDICATION: Male, 67 years old with history of abscess; h/o right groin abscess 3 years ago, drained and placed on antibiotics at that time, now palpable area felt in right panis/groin area TECHNIQUE: Multiple grayscale and color Doppler ultrasound images of the right groin the patient's r egion of palpable abnormality was obtained. FINDINGS/IMPRESSION: Red skin with noticeable white lesion that is palpable. Soft tissue scan shows complex fluid collection roughly 2.2 x 2.2cm in size with edematous tissue surrounding. No internal color flow identified. This may represent an abscess versus hematoma.
[2023-01-21 17:53] VITALS: BP 163/75; PULSE 75; TEMP 98.3
== END 2023-01-21 20:00 | disposition home or self-care (01) ==
LOC: EC 14:17
DX: L02.214 Cutaneous abscess of groin (principal); E11.9 Type 2 diabetes mellitus without complications; E03.9 Hypothyroidism, unspecified; E78.5 Hyperlipidemia, unspecified; G47.33 Obstructive sleep apnea (adult) (pediatric); I10 Essential (primary) hypertension; K21.9 Gastro-esophageal reflux disease without esophagitis; Z79.84 Long term (current) use of oral hypoglycemic drugs; Z79.890 Hormone replacement therapy; Z79.82 Long term (current) use of aspirin; Z79.899 Other long term (current) drug therapy; Z87.891 Personal history of nicotine dependence; Z86.16 Personal history of COVID-19; Z90.49 Acquired absence of other specified parts of digestive tract
CPT/HCPCS: 10060; 36415; 80053; 85025; 87070; 87205; 99284

== ENCOUNTER → 2023-07-28 | Outpatient (CLI) | payer MEDICARE ==
--- NOTE | 2023-07-28 11:40 | XR ---
EXAMINATION TYPE: XR lumbar spine 2 or 3V DATE OF EXAM: 07/28/2023 11:10 AM CLINICAL INDICATION:Male, 67 years old with history of M54.50 low back pain; [facility] COMPARISON: None TECHNIQUE: XR lumbar spine 2 or 3V - Frontal, lateral and coned in L5-S1 lateral views of the spine. FINDINGS: No evidence of any acute osseous pathology. No evidence of loss of vertebral body height i s seen. There is normal alignment of the lumbar vertebral bodies. Mild scattered disc space narrowing . Multilevel marginal osteophyte formation throughout the visualized spine. There is facet joint arth ropathy throughout the spine. Scattered at least mild neural foraminal stenosis. IMPRESSION: 1. No acute fracture. 2. Moderate multilevel disc degeneration.
== END | disposition home or self-care (01) ==
LOC: RADXRMAIN 10:27
PROVIDERS: ATTEND Internal Medicine
DX: M51.36 Other intervertebral disc degeneration, lumbar region (principal)
CPT/HCPCS: 72100

== ENCOUNTER 2024-02-23 07:33 | Emergency (ER) | payer MEDICARE ==
--- NOTE | 2024-02-23 08:10 | ED ---
SOB HPI - General Chief Complaint: Shortness of Breath Stated Complaint: SOB, Hypertension Time Seen by Provider: 02/23/24 07:40 Source: patient, RN notes reviewed Mode of arrival: ambulatory Limitations: no limitations - History of Present Illness Initial Comments: This is a 68-year-old male who presents to the emergency department for shortness of breath. Patient states that he has felt short of breath for the last 2 to 3 days. However, it usually only occurs with exertion and today he noticed it also at rest. Patient states that this morning he started to feel somewhat dizzy and just "did not feel right". He took his blood pressure and states that it was extremely elevated. He just switched from ramipril to losartan about a week ago. States that he did take his dose this morning. He cannot recall what dose he is on. He notes that he had an epidural injection yesterday and his blood pressure was in the 200s systolically then as well. Denies any headaches or visual changes. Denies any chest pain or URI symptoms. MD Complaint: shortness of breath - Related Data Home Medications Medication Instructions Recorded Confirmed Aspirin EC [Ecotrin Low Dose] 81 mg PO DAILY 06/06/19 02/23/24 Bisoprolol-Hctz 2.5-6.25 mg [Ziac 1 tab PO DAILY 06/06/19 02/23/24 2.5-6.25 MG] Furosemide [Lasix] 40 mg PO DIRECTED 06/06/19 02/23/24 Lansoprazole 30 mg PO Q2D 06/06/19 02/23/24 Levothyroxine Sodium [Synthroid] 50 mcg PO DAILY 06/06/19 02/23/24 amLODIPine [Norvasc] 10 mg PO DAILY 06/06/19 02/23/24 sitaGLIPtin PHOS/metFORMIN HCL 1 tab PO BID 06/06/19 02/23/24 [Janumet 50-1,000 mg Tablet] Atorvastatin [Lipitor] 80 mg PO DAILY 02/23/24 02/23/24 Cholecalciferol [Vitamin D3 (25 50 mcg PO DAILY 02/23/24 02/23/24 Mcg = 1000 Iu)] Ezetimibe [Zetia] 10 mg PO DAILY 02/23/24 02/23/24 Insulin Degludec [Tresiba 70 units SQ DAILY 02/23/24 02/23/24 Flextouch U-200 Pen] Losartan Potassium [Cozaar] 100 mg PO DAILY 02/23/24 02/23/24 Magnesium Oxide [Mag-Ox] 400 mg PO DAILY 02/23/24 02/23/24 Potassium Chloride [Klor-Con M20] 20 meq PO DIRECTED 02/23/24 02/23/24 Previous Rx's Medication Instructions Recorded Insulin Aspart [NovoLOG Flexpen] 20 units SQ AC-TID #0 02/14/21 Allergies Allergy/AdvReac Type Severity Reaction Status Date / Time No Known Allergies Allergy Verified 02/23/24 12:08 Review of Systems ROS Statement: Those systems with pertinent positive or pertinent negative responses have been documented in the HPI. ROS Other: All systems not noted in ROS Statement are negative. Past Medical History Past Medical History: Diabetes Mellitus, GERD/Reflux, Hearing Disorder / Deafness, Hyperlipidemia, Hypertension, Sleep Apnea/CPAP/BIPAP, Thyroid Disorder Additional Past Medical History / Comment(s): COVID +, IDDM type II, YARITZA with Cpap use, lower leg/pedal edema, hypothyroid, bilateral tinnitis, [place] bilaterally with L ear worse, low back pain. History of Any Multi-Drug Resistant Organisms: MRSA Date of last positivie culture/infection: back MDRO Source:: 2014 Past Surgical History: Cholecystectomy, Tonsillectomy Additional Past Surgical History / Comment(s): Sinus surgery/benign polypectomy, colonoscopy/benign polypectomy Past Anesthesia/Blood Transfusion Reactions: No Reported Reaction Past Psychological History: No Psychological Hx Reported Smoking Status: Former smoker Past Alcohol Use History: Occasional Past Drug Use History: None Reported - Past Family History Father History Unknown: Yes Additional Family Medical History / Comment(s): Pt never met his father. Mother Family Medical History: CVA/TIA General Exam Limitations: no limitations General appearance: alert, in no apparent distress Head exam: Present: atraumatic, normocephalic, normal inspection Respiratory exam: Present: normal lung sounds bilaterally. Absent: respiratory distress, wheezes, rales, rhonchi, stridor Cardiovascular Exam: Present: regular rate, normal rhythm, normal heart sounds. Absent: systolic murmur, diastolic murmur, rubs, gallop, clicks Neurological exam: Present: alert, oriented X3, CN II-XII intact Psychiatric exam: Present: normal affect, normal mood Skin exam: Present: warm, dry, intact, normal color. Absent: rash Course Vital Signs 02/23/24 02/23/24 02/23/24 07:35 07:55 08:10 Temperature 97.4 F L Pulse Rate 97 89 86 Respiratory 18 18 17 Rate Blood Pressure 191/93 177/93 176/96 O2 Sat by Pulse 96 93 L 93 L Oximetry 02/23/24 02/23/24 02/23/24 08:48 08:50 09:00 Temperature Pulse Rate 84 79 Respiratory 16 20 18 Rate Blood Pressure 146/79 146/79 O2 Sat by Pulse 93 L 93 L Oximetry 02/23/24 02/23/24 02/23/24 09:10 10:00 10:05 Temperature Pulse Rate 82 82 82 Respiratory 17 24 17 Rate Blood Pressure 142/72 141/71 142/73 O2 Sat by Pulse 92 L 94 L 94 L Oximetry 02/23/24 02/23/24 02/23/24 10:10 11:10 12:17 Temperature 98.1 F Pulse Rate 79 74 74 Respiratory 20 23 18 Rate Blood Pressure 142/73 165/75 149/72 O2 Sat by Pulse 94 L 94 L 92 L Oximetry Medical Decision Making - Medical Decision Making This is a 68-year-old male who presents to the emergency department for shortness of breath. Was pt. sent in by a medical professional or institution? @ -No Did you speak to anyone other than the patient for history? @ -No Did you review nursing and triage notes? @ -Yes, and I agree, it is accurate with regards to the patient's symptoms. Were old charts reviewed? @ -No Differential Diagnosis? @ -Differential Dyspnea: Coronary syndrome, arrhythmia, tamponade, asthma, COPD, pulmonary embolism, pneumonia, pneumothorax, pulmonary effusion, anaphylaxis, diabetic ketoacidosis, flailed chest, pulmonary contusion, diaphragmatic rupture, anemia, neuromuscular, this is not meant to be an all-inclusive list. EKG interpreted by me (3pts min.)? @ -EKG interpreted by me demonstrating the following: Sinus rhythm. Ventricular rate 96 bpm, NC interval 224 ms, QRS duration 158 ms, QTc 456 ms. X-rays interpreted by me (1pt min.)? @ -Chest x-ray obtained. My interpretation identifies pulmonary vascular congestion. CT interpreted by me (1pt min.)? @ -Not obtained U/S interpreted by me (1pt. min.)? @ -Not obtained What testing was considered but not performed? (CT, X-rays, U/S, labs)? Why? @ -None What meds were considered but not given? Why? @ -None Did you discuss the management of the patient with other professionals? @ -No Did you reconcile home meds? @ -No Was smoking cessation discussed for >3mins.? @ -No Was critical care preformed (if so, how long)? @ -No Were there social determinants of health that impacted care today? How? (Homelessness, low income, unemployed, alcoholism, drug addiction, transportation, low edu. Level, literacy, decrease access to med. care, [facility], rehab)? @ -No Was there de-escalation of care discussed even if they declined? (Discuss DNR or withdrawal of care, Hospice)? @ -No What co-morbidities impacted this encounter? (DM, HTN, Smoking, COPD, CAD, Cancer, CVA, Hep., AIDS, mental health diagnosis, sleep apnea, morbid obesity)? @ -DM, hyperlipidemia, hypertension Was patient admitted / discharged? @ -Discharged. Lab work demonstrates mild leukocytosis with a white blood cell count of 11.7. He has mild hypomagnesemia with a magnesium of 1.4 and lactic acid elevated at 5.2. Troponin and D-dimer negative. Chest x-ray demonstrates cardiomegaly with mild pulmonary vascular congestion. BNP is only 156. COVID, influenza, and RSV testing negative. Urinalysis negative for signs of infection. 400mg of magnesium oxide administered. The cause of the lactic acid elevation is not clear. He has no sign of infection. His pulse ox would occasionally read at 92%, but would then quickly go back up to 97%. He never appeared to have difficulty breathing and while waiting in the emergency department began to feel much better on his own. Ambulatory pulse ox obtained as well, and measured 93 to 94%. Lactic acid repeated and had gone down to 3.5 on its own. Blood pressure elevated on arrival at 191/93. This also began to improve on its own and went down into the 140s systolically. While resting in the emergency department states that he continued to feel much better. His largest concern was related to the blood pressure. Given that his blood pressure and the lactic acid have improved and he is essentially asymptomatic, he can be discharged home. He was given strict return parameters and advised to have close follow-up with his PCP. Advised he also continue monitoring his blood pressure at home and to keep a log of these values. Patient discharged home in stable condition. Case discussed with ED attending Dr. Montano. Return precautions reviewed in depth, the patient is instructed to return to the emergency department with any new, worsening, or concerning symptoms. Patient verbalized understanding. Undiagnosed new problem with uncertain prognosis? @ -None Drug Therapy requiring intensive monitoring for toxicity (Heparin, Nitro, Insulin, Cardizem)? @ -None Were any procedures done? @ -None Diagnosis/symptom? @ -Shortness of breath, elevated BP, elevated lactic acid Acute, or Chronic, or Acute on Chronic? @ -Acute Uncomplicated (without systemic symptoms) or Complicated (systemic symptoms)? @ -Uncomplicated Side effects of treatment? @ -None Exacerbation, Progression, or Severe Exacerbation] @ -Not applicable Poses a threat to life or bodily function? @ -Unlikely at this time - Lab Data Result diagrams: 02/23/24 08:12 02/23/24 08:12 Lab Results 02/23/24 02/23/24 02/23/24 Range/Units 08:12 08:12 08:12 WBC 11.7 H (3.8-10.6) k/uL RBC 4.79 (4.30-5.90) m/uL Hgb 14.5 (13.0-17.5) gm/dL Hct 44.5 (39.0-53.0) % MCV 92.8 (80.0-100.0) fL MCH 30.4 (25.0-35.0) pg MCHC 32.7 (31.0-37.0) g/dL RDW 13.4 (11.5-15.5) % Plt Count 310 (150-450) k/uL MPV 8.5 Neutrophils % 87 % Lymphocytes % 9 % Monocytes % 3 % Eosinophils % 0 % Basophils % 0 % Neutrophils # 10.1 H (1.3-7.7) k/uL Lymphocytes # 1.0 (1.0-4.8) k/uL Monocytes # 0.4 (0-1.0) k/uL Eosinophils # 0.0 (0-0.7) k/uL Basophils # 0.0 (0-0.2) k/uL PT 10.8 (10.0-12.5) sec INR 1.0 (<1.2) APTT 21.5 L (22.0-30.0) sec D-Dimer 0.30 (<0.60) mg/L FEU Sodium 138 (137-145) mmol/L Potassium 4.8 (3.5-5.1) mmol/L Chloride 101 (98-107) mmol/L Carbon Dioxide 22 (22-30) mmol/L Anion Gap 15 mmol/L BUN 17 (9-20) mg/dL Creatinine 0.60 L (0.66-1.25) mg/dL Est GFR (CKD-EPI)AfAm >90 (>60 ml/min/1.73 sqM) Est GFR (CKD-EPI)NonAf >90 (>60 ml/min/1.73 sqM) Glucose 253 H (74-99) mg/dL Lactic Ac Sepsis Rflx Plasma Lactic Acid Ned (0.7-2.0) mmol/L Calcium 10.0 (8.4-10.2) mg/dL Magnesium 1.4 L (1.6-2.3) mg/dL Total Bilirubin 0.7 (0.2-1.3) mg/dL AST 43 (17-59) U/L ALT 71 H (4-49) U/L Alkaline Phosphatase 106 (38-126) U/L Troponin I (0.000-0.034) ng/mL NT-Pro-B Natriuret Pep 156 pg/mL Total Protein 7.6 (6.3-8.2) g/dL Albumin 4.8 (3.5-5.0) g/dL Urine Color Urine Appearance (Clear) Urine pH (5.0-8.0) Ur Specific [place] (1.001-1.035) Urine Protein (Negative) Urine Glucose (UA) (Negative) Urine Ketones (Negative) Urine Blood (Negative) Urine Nitrite (Negative) Urine Bilirubin (Negative) Urine Urobilinogen (<2.0) mg/dL Ur Leukocyte Esterase (Negative) Urine RBC (0-5) /hpf Urine WBC (0-5) /hpf Ur Squamous Epith Cells (0-4) /hpf Urine Mucus (None) /hpf Acetone, Qual (Negative) Influenza Type A (PCR) (Not Detectd) Influenza Type B (PCR) (Not Detectd) RSV (PCR) (Not Detectd) SARS-CoV-2 (PCR) (Not Detectd) 02/23/24 02/23/24 02/23/24 Range/Units 08:12 08:12 08:12 WBC (3.8-10.6) k/uL RBC (4.30-5.90) m/uL Hgb (13.0-17.5) gm/dL Hct (39.0-53.0) % MCV (80.0-100.0) fL MCH (25.0-35.0) pg MCHC (31.0-37.0) g/dL RDW (11.5-15.5) % Plt Count (150-450) k/uL MPV Neutrophils % % Lymphocytes % % Monocytes % % Eosinophils % % Basophils % % Neutrophils # (1.3-7.7) k/uL Lymphocytes # (1.0-4.8) k/uL Monocytes # (0-1.0) k/uL Eosinophils # (0-0.7) k/uL Basophils # (0-0.2) k/uL PT (10.0-12.5) sec INR (<1.2) APTT (22.0-30.0) sec D-Dimer (<0.60) mg/L FEU Sodium (137-145) mmol/L Potassium (3.5-5.1) mmol/L Chloride (98-107) mmol/L Carbon Dioxide (22-30) mmol/L Anion Gap mmol/L BUN (9-20) mg/dL Creatinine (0.66-1.25) mg/dL Est GFR (CKD-EPI)AfAm (>60 ml/min/1.73 sqM) Est GFR (CKD-EPI)NonAf (>60 ml/min/1.73 sqM) Glucose (74-99) mg/dL Lactic Ac Sepsis Rflx Plasma Lactic Acid Ned 5.2 H* (0.7-2.0) mmol/L Calcium (8.4-10.2) mg/dL Magnesium (1.6-2.3) mg/dL Total Bilirubin (0.2-1.3) mg/dL AST (17-59) U/L ALT (4-49) U/L Alkaline Phosphatase (38-126) U/L Troponin I <0.012 (0.000-0.034) ng/mL NT-Pro-B Natriuret Pep pg/mL Total Protein (6.3-8.2) g/dL Albumin (3.5-5.0) g/dL Urine Color Urine Appearance (Clear) Urine pH (5.0-8.0) Ur Specific [place] (1.001-1.035) Urine Protein (Negative) Urine Glucose (UA) (Negative) Urine Ketones (Negative) Urine Blood (Negative) Urine Nitrite (Negative) Urine Bilirubin (Negative) Urine Urobilinogen (<2.0) mg/dL Ur Leukocyte Esterase (Negative) Urine RBC (0-5) /hpf Urine WBC (0-5) /hpf Ur Squamous Epith Cells (0-4) /hpf Urine Mucus (None) /hpf Acetone, Qual (Negative) Influenza Type A (PCR) Not Detected (Not Detectd) Influenza Type B (PCR) Not Detected (Not Detectd) RSV (PCR) Not Detected (Not Detectd) SARS-CoV-2 (PCR) Not Detected (Not Detectd) 02/23/24 02/23/24 02/23/24 Range/Units 08:12 09:08 10:13 WBC (3.8-10.6) k/uL RBC (4.30-5.90) m/uL Hgb (13.0-17.5) gm/dL Hct (39.0-53.0) % MCV (80.0-100.0) fL MCH (25.0-35.0) pg MCHC (31.0-37.0) g/dL RDW (11.5-15.5) % Plt Count (150-450) k/uL MPV Neutrophils % % Lymphocytes % % Monocytes % % Eosinophils % % Basophils % % Neutrophils # (1.3-7.7) k/uL Lymphocytes # (1.0-4.8) k/uL Monocytes # (0-1.0) k/uL Eosinophils # (0-0.7) k/uL Basophils # (0-0.2) k/uL PT (10.0-12.5) sec INR (<1.2) APTT (22.0-30.0) sec D-Dimer (<0.60) mg/L FEU Sodium (137-145) mmol/L Potassium (3.5-5.1) mmol/L Chloride (98-107) mmol/L Carbon Dioxide (22-30) mmol/L Anion Gap mmol/L BUN (9-20) mg/dL Creatinine (0.66-1.25) mg/dL Est GFR (CKD-EPI)AfAm (>60 ml/min/1.73 sqM) Est GFR (CKD-EPI)NonAf (>60 ml/min/1.73 sqM) Glucose (74-99) mg/dL Lactic Ac Sepsis Rflx Y Plasma Lactic Acid Ned 3.5 H* (0.7-2.0) mmol/L Calcium (8.4-10.2) mg/dL Magnesium (1.6-2.3) mg/dL Total Bilirubin (0.2-1.3) mg/dL AST (17-59) U/L ALT (4-49) U/L Alkaline Phosphatase (38-126) U/L Troponin I (0.000-0.034) ng/mL NT-Pro-B Natriuret Pep pg/mL Total Protein (6.3-8.2) g/dL Albumin (3.5-5.0) g/dL Urine Color Urine Appearance (Clear) Urine pH (5.0-8.0) Ur Specific [place] (1.001-1.035) Urine Protein (Negative) Urine Glucose (UA) (Negative) Urine Ketones (Negative) Urine Blood (Negative) Urine Nitrite (Negative) Urine Bilirubin (Negative) Urine Urobilinogen (<2.0) mg/dL Ur Leukocyte Esterase (Negative) Urine RBC (0-5) /hpf Urine WBC (0-5) /hpf Ur Squamous Epith Cells (0-4) /hpf Urine Mucus (None) /hpf Acetone, Qual Negative (Negative) Influenza Type A (PCR) (Not Detectd) Influenza Type B (PCR) (Not Detectd) RSV (PCR) (Not Detectd) SARS-CoV-2 (PCR) (Not Detectd) 02/23/24 02/23/24 Range/Units 10:15 11:53 WBC (3.8-10.6) k/uL RBC (4.30-5.90) m/uL Hgb (13.0-17.5) gm/dL Hct (39.0-53.0) % MCV (80.0-100.0) fL MCH (25.0-35.0) pg MCHC (31.0-37.0) g/dL RDW (11.5-15.5) % Plt Count (150-450) k/uL MPV Neutrophils % % Lymphocytes % % Monocytes % % Eosinophils % % Basophils % % Neutrophils # (1.3-7.7) k/uL Lymphocytes # (1.0-4.8) k/uL Monocytes # (0-1.0) k/uL Eosinophils # (0-0.7) k/uL Basophils # (0-0.2) k/uL PT (10.0-12.5) sec INR (<1.2) APTT (22.0-30.0) sec D-Dimer (<0.60) mg/L FEU Sodium (137-145) mmol/L Potassium (3.5-5.1) mmol/L Chloride (98-107) mmol/L Carbon Dioxide (22-30) mmol/L Anion Gap mmol/L BUN (9-20) mg/dL Creatinine (0.66-1.25) mg/dL Est GFR (CKD-EPI)AfAm (>60 ml/min/1.73 sqM) Est GFR (CKD-EPI)NonAf (>60 ml/min/1.73 sqM) Glucose (74-99) mg/dL Lactic Ac Sepsis Rflx Y Plasma Lactic Acid Ned (0.7-2.0) mmol/L Calcium (8.4-10.2) mg/dL Magnesium (1.6-2.3) mg/dL Total Bilirubin (0.2-1.3) mg/dL AST (17-59) U/L ALT (4-49) U/L Alkaline Phosphatase (38-126) U/L Troponin I (0.000-0.034) ng/mL NT-Pro-B Natriuret Pep pg/mL Total Protein (6.3-8.2) g/dL Albumin (3.5-5.0) g/dL Urine Color Light Yellow Urine Appearance Clear (Clear) Urine pH 5.5 (5.0-8.0) Ur Specific [place] 1.018 (1.001-1.035) Urine Protein 2+ H (Negative) Urine Glucose (UA) 1+ H (Negative) Urine Ketones Negative (Negative) Urine Blood Small H (Negative) Urine Nitrite Negative (Negative) Urine Bilirubin Negative (Negative) Urine Urobilinogen <2.0 (<2.0) mg/dL Ur Leukocyte Esterase Negative (Negative) Urine RBC 4 (0-5) /hpf Urine WBC 2 (0-5) /hpf Ur Squamous Epith Cells 2 (0-4) /hpf Urine Mucus Rare H (None) /hpf Acetone, Qual (Negative) Influenza Type A (PCR) (Not Detectd) Influenza Type B (PCR) (Not Detectd) RSV (PCR) (Not Detectd) SARS-CoV-2 (PCR) (Not Detectd) - Radiology Data Radiology results: report reviewed, image reviewed Disposition Clinical Impression: Shortness of breath, Hypertension, Elevated lactic acid level Disposition: HOME SELF-CARE Instructions (If sedation given, give patient instructions): Hypertension (ED) Additional Instructions: Return to the emergency department with any new, worsening, or concerning symptoms. Continue to monitor your blood pressure at home. Follow up with your primary care provider in 1-2 days. Is patient prescribed a controlled substance at d/c from ED?: No Referrals: Kenneth Gary MD [Primary Care Provider] - 1-2 days Time of Disposition: 11:56
[2024-02-23 08:30] LABS: Basophils % (A) 0 %; Eosinophils % (A) 0 %; HCT 44.5 % (39.0-53.0); HGB 14.5 gm/dL (13.0-17.5); Lymphocytes % (A) 9 %; MCH 30.4 pg (25.0-35.0); MCHC 32.7 g/dL (31.0-37.0); MCV 92.8 fL (80.0-100.0); Mean Platelet Volume 8.5; Monocytes # (A) 0.4 k/uL (0-1.0); Monocytes % (A) 3 %; Neutrophils # (A) 10.1 k/uL (1.3-7.7); Neutrophils % (A) 87 %; Platelet Count 310 k/uL (150-450); RBC 4.79 m/uL (4.30-5.90); RDW 13.4 % (11.5-15.5); WBC 11.7 k/uL (3.8-10.6)
[2024-02-23 08:39] LABS: AST 43 U/L (17-59); African American GFR (CKD) >90 (>60 ml/min/1.73 sqM); Albumin 4.8 g/dL (3.5-5.0); Alkaline Phosphatase 106 U/L (38-126); Anion Gap 15 mmol/L; Blood Urea Nitrogen 17 mg/dL (9-20); Carbon Dioxide 22 mmol/L (22-30); Chloride 101 mmol/L (98-107); Glucose 253 mg/dL (74-99); Magnesium 1.4 mg/dL (1.6-2.3); Non-African American GFR(CKD) >90 (>60 ml/min/1.73 sqM); Potassium 4.8 mmol/L (3.5-5.1); Sodium 138 mmol/L (137-145); Total Bilirubin 0.7 mg/dL (0.2-1.3); Total Protein 7.6 g/dL (6.3-8.2)
[2024-02-23 08:45] LABS: ALT 71 U/L (4-49)
[2024-02-23 08:46] LABS: NT-Pro-B-Type Natriuretic Pept 156 pg/mL
--- NOTE | 2024-02-23 08:49 | XR ---
EXAMINATION TYPE: XR chest 2V DATE OF EXAM: 02/23/2024 8:37 AM COMPARISON: None CLINICAL INDICATION: Male, 68 years old with history of difficulty breathing; [facility] TECHNIQUE: XR chest 2V Frontal and lateral views of the chest. FINDINGS: Lungs/Pleura: There is no evidence of pleural effusion, focal consolidation, or pneumothorax. Pulmonary vascularity: Pulmonary vascular congestion. Heart/mediastinum: Cardiomediastinal silhouette is enlarged and stable. Musculoskeletal: No acute osseous pathology. IMPRESSION: Cardiomegaly and mild pulmonary vascular congestion. Correlate with BNP for congestive heart failure. [facility], , 02/23/2024 8:46 AM
[2024-02-23 08:50] LABS: Prothrombin Time 10.8 sec (10.0-12.5)
[2024-02-23 08:51] LABS: Partial Thromboplastin Time 21.5 sec (22.0-30.0)
[2024-02-23] MEDS: MAGNESIUM OXIDE 400 MG TAB PO STA (08:55)
[2024-02-23] MEDS: SODIUM CHLORIDE 0.9% 500 ML 500 ML IV STA (10:26)
[2024-02-23 10:32] LABS: Appearance,Urine Clear (Clear); Bilirubin,Urine Negative (Negative); Blood,Urine Small (Negative); Color,Urine Light Yellow; Glucose,Urine (UA) 1+ (Negative); Ketones,Urine Negative (Negative); Leukocyte Esterase,Urine Negative (Negative); Mucus,Urine Rare /hpf; Nitrite,Urine Negative (Negative); PH, Urine 5.5 (5.0-8.0); Protein,Urine 2+ (Negative); RBC,Urine 4 /hpf (0-5); Specific Gravity,Urine 1.018 (1.001-1.035); Squamous Epithelial Cell,Urine 2 /hpf (0-4); Urobilinogen,Urine <2.0 mg/dL (<2.0); WBC,Urine 2 /hpf (0-5)
[2024-02-23 12:02] VITALS: PULSE 74
[2024-02-23 12:19] VITALS: BP 149/72; RESP 18; TEMP 98.1
== END 2024-02-23 12:19 | disposition home or self-care (01) ==
LOC: EC 07:33
DX: R06.02 Shortness of breath (principal); I10 Essential (primary) hypertension; E11.9 Type 2 diabetes mellitus without complications; E78.5 Hyperlipidemia, unspecified; Z87.891 Personal history of nicotine dependence
CPT/HCPCS: 36415; 71046; 80053; 81001; 82009; 83605; 83735; 83880; 84484; 85025; 85379; 85610; 85730; 87636; 93005; 99285

== ENCOUNTER → 2024-04-18 | Outpatient (CLI) | payer MEDICARE ==
--- NOTE | 2024-04-18 13:20 | US ---
EXAMINATION TYPE: US carotid duplex BILAT DATE OF EXAM: 04/18/2024 COMPARISON: US 2011 CLINICAL INDICATION: Male, 68 years old with history of I25.10 Coronary ateriosclerosis; TECHNIQUE: Grayscale, color Doppler and spectral Doppler evaluation of the bilateral carotid systems and vertebral arteries. Indirect Doppler criteria was utilized. FINDINGS: EXAM MEASUREMENTS: RIGHT: Peak Systolic Velocity (PSV) cm/sec ----- Right CCA: 84.2 ----- Right ICA: 82.6 ----- Right ECA: 176.6 ICA/CCA ratio: 1.0 RIGHT: End Diastole cm/sec ----- Right CCA: 18.2 ----- Right ICA: 23.2 ----- Right ECA: 22.9 LEFT: Peak Systolic Velocity (PSV) cm/sec ----- Left CCA: 86.4 ----- Left ICA: 62.9 ----- Left ECA: 119.1 ICA/CCA ratio: 0.7 LEFT: End Diastole cm/sec ----- Left CCA: 21.0 ----- Left ICA: 20.7 ----- Left ECA: 17.7 VERTEBRALS (direction of flow): Right Vertebral: Antegrade Left Vertebral: Antegrade Rhythm: Normal Difficult and limited study due to patient body habitus IMPRESSION: No ultrasound evidence for hemodynamically significant stenosis of the bilateral internal carotid art eries. Criteria for Assigning % of Stenosis / Diameter reduction (Estimation based on the indirect measurements of the internal carotid artery velocities (ICA PSV). 1. Normal (no stenosis)=ICA PSV < 125 cm/s: ratio < 2.0: ICA EDV<40 cm/s. 2. Less than 50% stenosis=ICA PSV < 125 cm/s: ratio < 2.0: ICA EDV<40 cm/s. 3. 50 to 69% stenosis=ICA PSV of 125 to 230 cm/s: ration 2.0 ? 4.0: ICA EDV 40-100 cm/s. 4. Greater than 70% stenosis to near occlusion= ICA PSV > 230 cm/s: ratio > 4.0: ICA EDV > 100 cm/s. 5. Near occlusion= ICA PSV velocities may be low or undetectable: variable ratio and ICA EDV. 6. Total occlusion=unable to detect flow. [facility], , 04/18/2024 1:18 PM
--- NOTE | 2024-04-18 17:25 | CA ---
Transthoracic Echo Report Name: Bernard Schumacher Age: 68 Gender: M : 1955 Exam Date: 04/18/2024 14:00 Exam Location: [place] [facility] Ht (in): 69 Wt (lb): 370 Ordering Physician: Kenneth Gary MD Attending/Referring Phys: [employer] Sales Consultant Fouzia Reid RDCS Procedure CPT: Indications: I25.10 CAD Cardiac Hx: Technical Quality: Fair Contrast 1: Total Dose (mL): Contrast 2: Total Dose (mL): MEASUREMENTS (Male / Female) Normal Values 2D ECHO LV Diastolic Diameter PLAX 6.1 cm 4.2 - 5.9 / 3.9 - 5.3 cm LV Systolic Diameter PLAX 4.5 cm IVS Diastolic Thickness 1.2 cm 0.6 - 1.0 / 0.6 - 0.9 cm LVPW Diastolic Thickness 1.0 cm 0.6 - 1.0 / 0.6 - 0.9 cm LV Relative Wall Thickness 0.3 LVOT Diameter 2.2 cm LV Diastolic Volume MOD BP 153.2 cm??? 67 - 155 / 56 - 104 cm??? LV Systolic Volume MOD BP 64.0 cm??? 22 - 58 / 19 - 49 cm??? LV Ejection Fraction MOD BP 58.2 % >= 55 % LV Cardiac Index MOD BP 2111.5 cm???/min???m??? LV Diastolic Volume MOD 4C 143.8 cm??? LV Systolic Volume MOD 4C 56.6 cm??? LV Ejection Fraction MOD 4C 60.6 % LV Cardiac Index MOD 4C 2063.9 cm???/min???m??? LV Diastolic Length 4C 8.7 cm LV Systolic Length 4C 7.4 cm LV Diastolic Volume MOD 2C 161.5 cm??? LV Systolic Volume MOD 2C 71.2 cm??? LV Ejection Fraction MOD 2C 55.9 % LV Cardiac Index MOD 2C 2136.3 cm???/min???m??? LV Diastolic Length 2C 8.9 cm LV Systolic Length 2C 7.2 cm LA Volume 87.8 cm??? 18 - 58 / 22 - 52 cm??? LA Volume Index 29.7 cm???/m??? 16 - 28 cm???/m??? Ascending Aorta Diameter 4.0 cm DOPPLER AV Peak Velocity 223.4 cm/s AV Peak Gradient 20.0 mmHg AV Mean Velocity 155.9 cm/s AV Mean Gradient 11.1 mmHg AV Velocity Time Integral 46.8 cm LVOT Peak Velocity 124.1 cm/s LVOT Peak Gradient 6.2 mmHg LVOT Velocity Time Integral 25.7 cm LVOT Stroke Volume 100.6 cm??? LVOT Stroke Volume Index 37.5 ml/m??? LVOT Cardiac Index 2381.5 cm???/min???m??? AV Area Cont Eq vti 2.2 cm??? AV Area Cont Eq pk 2.2 cm??? MV Area PHT 4.0 cm??? Mitral E Point Velocity 72.5 cm/s Mitral A Point Velocity 57.8 cm/s Mitral E to A Ratio 1.3 MV Deceleration Time 191.7 ms TR Peak Velocity 245.7 cm/s TR Peak Gradient 24.1 mmHg Right Atrial Pressure 5.0 mmHg Pulmonary Artery Systolic Pressu 29.1 mmHg Right Ventricular Systolic Press 29.1 mmHg PV Peak Velocity 99.9 cm/s PV Peak Gradient 4.0 mmHg FINDINGS Left Ventricle Left ventricular ejection fraction is estimated at 55-60 %. Mildly increased septal wall thickness. Mildly increased left ventricular diastolic diameter. Mildly increased left ventricular systolic volume. No obvious regional wall motion abnormalities. Right Ventricle Right ventricle not well visualized. Right ventricular systolic pressure within normal limits. Right Atrium Normal right atrial size. Left Atrium Mildly increased left atrial volume. Mildly increased left atrial area. Mitral Valve Structurally normal mitral valve. No evidence for mitral valve prolapse. No mitral stenosis. Trace mitral regurgitation. Aortic Valve Trileaflet aortic valve. No aortic valve stenosis or regurgitation. Tricuspid Valve Structurally normal tricuspid valve. No tricuspid stenosis. Mild tricuspid regurgitation. Pulmonic Valve Structurally normal pulmonic valve. No pulmonic regurgitation. No pulmonic stenosis. Pericardium No pericardial effusion. Aorta Aortic annulus normal. Mildly dilated proximal ascending aorta (tube). CONCLUSIONS Normal LV systolic function Previewed by: Dr. Juancarlos Amato MD (Electronically Signed) Final Date: 18 April 2024 17:24
== END | disposition home or self-care (01) ==
LOC: RADUSWWP 12:29
PROVIDERS: ATTEND Internal Medicine
DX: I65.23 Occlusion and stenosis of bilateral carotid arteries (principal); I25.10 Atherosclerotic heart disease of native coronary artery without angina pectoris
CPT/HCPCS: 93306; 93880

== ENCOUNTER → 2024-06-10 | Outpatient (CLI) | payer MEDICARE ==
--- NOTE | 2024-06-10 07:34 | CTL ---
EXAMINATION TYPE: CT Low Dose Lung DATE OF EXAM ORDERED: 06/10/2024 COMPARISON: PET CT 09/12/2017, chest radiograph 02/23/2024 CLINICAL INDICATION: Male, 68 years old with history of Z12.2 screening for lung ca; [facility], former smok er, quit 10 years ago smoked 1ppd x25 years., Lung cancer screening, History of Smoking/tobacco use. TECHNIQUE: Low dose computed tomography scan was performed through the chest at 1 mm thick sections a nd reconstructed images in multiple planes at 1 mm and [address] DLP: [address] CTDI: 4.37 mGy Automated exposure control for dose reduction was used. CT DIAGNOSTIC QUALITY: Limited, but interpretable FINDINGS: Nodules: No clinically significant pulmonary nodule identified. LUNGS: COPD: Severity: None Fibrosis: Severity: None Lymph nodes: Stable enlarged right paratracheal lymph node measuring 1.5 cm from 2018 (series 5, imag e 18). Other findings: None RIGHT PLEURAL SPACE: Effusion: None Calcification: None Thickening: None Pneumothorax: None LEFT PLEURAL SPACE: Effusion: None Calcification: None Thickening: None Pneumothorax: None HEART: Heart Size: Prominent Coronary Calcification: Small Pericardial Effusion: None OTHER FINDINGS: Upper abdomen: None Bony thorax: Mild multilevel degenerative disc disease. Supraclavicular region: None Other: None IMPRESSION: Limited examination due to low-dose technique and patient's body habitus. 1. No clinically significant pulmonary nodule identified. 2. Stable right paratracheal mildly enlarged lymph node dating back to [address] LUNG RAD AND CT CHEST RECOMMENDATION: Lung-Rad 1 Negative: Continue annual screening with LDCT in 12 months. S Modifier (other clinically significant findings): None [facility], , 06/10/2024 7:31 AM
== END | disposition home or self-care (01) ==
LOC: RADCTMAIN 06:07
PROVIDERS: ATTEND Internal Medicine
DX: Z12.2 Encounter for screening for malignant neoplasm of respiratory organs (principal); R59.0 Localized enlarged lymph nodes; Z87.891 Personal history of nicotine dependence
CPT/HCPCS: 71271